=== PATIENT | female | born 1950 | race Caucasian/White ===

== ENCOUNTER → 2017-08-18 | Outpatient (CLI) | payer OTHER ==
[~2017-08-18] MED LIST: ADVIN25050 INH; ALPR1TAB3 PO; AMIT50TA3 PO; FLUO20CA35 PO; HYDR-4079 PO; MELO15TA10 PO; METO5TAB2 PO; OXGN; PRLSR20 PO
[2017-08-18 12:06] LABS: HEMATOCRIT 45.8 % (37-47); MEAN CORPUSCULAR HEMOGLOBIN 29.9 pg (25-34); MEAN CORPUSCULAR HGB CONC 32.5 g/dl (32-36); MEAN PLATELET VOLUME 10.4 fL (7.4-10.4); PLATELET COUNT 274 K/uL (130-400); RED BLOOD COUNT 4.98 M/uL (4.2-5.4); WHITE BLOOD COUNT 8.88 K/uL (4.8-10.8)
[2017-08-18 12:18] LABS: BLOOD UREA NITROGEN 8 mg/dl (7-18); BUN/CREATININE RATIO 9.5 (10-20); CALCIUM 8.8 mg/dl (8.5-10.1); CARBON DIOXIDE 32 mmol/L (21-32); CHLORIDE 103 mmol/L (98-107); GLUCOSE 91 mg/dl (70-99); POTASSIUM 3.9 mmol/L (3.5-5.1); SODIUM 140 mmol/L (136-145)
[2017-08-18 12:29] LABS: CHOLESTEROL 192 mg/dl (0-200); CHOLESTEROL/HDL RATIO 5.5; HDL CHOLESTEROL 35 mg/dl; THYROID STIMULATING HORMONE 0.948 uIu/ml (0.300-4.500); TRIGLYCERIDES 542 mg/dl (0-150)
== END | disposition home or self-care (01) ==
LOC: C.LAB 10:08
PROVIDERS: ATTEND Family Medicine
DX: Z13.220 Encounter for screening for lipoid disorders (principal); R53.83 Other fatigue

== ENCOUNTER 2023-01-22 14:34 | Inpatient (IN) ==
--- NOTE | 2023-01-22 14:54 | Emergency Department Note ---
Impression & Plan Multifocal pneumonia, Fall, Confusion, Elevated troponin ED Provider Note Provider: Idris Hitchcock MD DATE OF SERVICE: 01/22/2023 CHIEF COMPLAINT: Confusion, falls HISTORY OF PRESENT ILLNESS: Patient is a 72-year-old female history of COPD and chronic opioid use presenting today via ambulance from her home. Evidently was found in her house after having multiple falls over the last day or 2 and not acting herself. Patient herself states she is unsure what exactly happened. States she was in her bed when caregiver came and found her. States she lives alone. Denies using alcohol or other drugs. Denies falls to me. Denies pain. Denies nausea or vomiting. Denies shortness of breath. Denies chest pain or abdominal pain specifically or headache. Patient states she thinks her doctor is with [facility]. EMS reports they gave a dose of Narcan in route without change of her mentation. Not normally on oxygen by report. PAST MEDICAL HISTORY: As noted above MEDICATIONS: Reviewed home medication list SOCIAL HISTORY: Patient states he lives by herself PHYSICAL EXAM: GENERAL: alert and oriented to person, year, and month in no acute distress on stretcher but not the best historian to recent events Head: normocephalic and atraumatic EYES: No injection, discharge or icterus. PERRL NECK: Trachea midline. Supple. ENT: Mucous membranes pink and moist. Pharynx without erythema or exudate. LUNGS: Airway patent. No retractions. Breath sounds clear with good air entry bilaterally. HEART: Regular rate and rhythm. No chest wall tenderness ABDOMEN: Soft and non-tender, without guarding or rebound. SKIN: Acyanotic, warm, dry, without rashes EXTREMITIES: Without 1+ lower extremity edema without significant tenderness or deformity. NEUROLOGICAL: No focal deficits. No aphasia although little slow to answer questions at times. No facial droop or slurred speech. Normal strength and tone in the extremities. Sensation to gross touch normal. Ambulatory. EK bpm normal sinus rhythm without PVC or PAC. No acute ST segment elevation with some lead III T wave inversion. QTc 437. CONTINUOUS CARDIAC MONITORING: was ordered and showed a heart rate of 80s-90s bpm in normal sinus rhythm GCS 15. PDMP was reviewed. Patient's laboratory studies and imaging reviewed. Differential includes Infection, dehydration, metabolic abnormality, hypo/hyperglycemia, electrolyte disturbance, anemia, hypoxia, cardiac sources, intracerebral event, toxicologic, neurologic, as well as other pathologies. IMPRESSION/MEDICAL DECISION MAKING: Patient answering question moving all extremities command seems slightly groggy. Pupils not pinpoint. Narcan given prior to arrival without improvement of symptoms. Slightly hypoxic here. Does have prescribed opioids on her medication list. Reports some falls and increased confusion. Basic labs and VBG sent. CT of the head as well as cervical spine given the possibility of falls was sent. No significant stigmata of trauma on physical exam however. Later weaned from oxygen but has a leukocytosis. X-ray concerning for possible right lower lung opacity/pneumonia. Will cover with antibiotics at this time. VBG without significant acidosis or hypercarbia. Not hypoglycemic. Troponin is elevated 156. Unsure if chronic or new. Again mildly hypoxic. Still smoking. Family later arrives and corroborates much of the history but was found on the floor in her bedroom. Family state that she was facedown. They did give Narcan there with maybe slight improvement. She was slurring her speech initially. Question if she was hypoxic. Family question she may have taken extra dose of her medication as well. Alcohol undetectable. Family states she has seemed to may be a bit sick the last day or 2. Family questions you may have a bit of dementia developing but she is acutely worse today. Slightly more alert than when they initially found her according to family. We will expand complete CT of the chest abdomen pelvis given the fact that she was found down and did note later flank contusion. CT of the head and cervical spine without acute traumatic injury. CT of the chest abdomen pelvis shows evidence of a right middle and lower lobe pneumonia/aspiration with some bladder distention and constipation. Possible stercoral proctitis noted with subacute and healing right anterior rib fractures. Patient again borderline with oxygen requirement. Given aspirin with a slight troponin elevation. Discussed with patient and family, given the multiple lobes involved and that fact she is borderline hypoxia and lives alone, discussed with her staying here for further evaluation. Patient and family are in agreement. Discussed with hospitalist for further care here. DIAGNOSIS: Multifocal pneumonia, fall, confusion, elevated troponin DISPOSITION: Hospitalist will evaluate Patient was agreeable with this plan. Past Med/Surg History Medical History Anxiety Chronic obstructive pulmonary disease Depression Osteoarthritis Pseudoangiomatous stromal hyperplasia of breast Restless leg syndrome Sleep apnea CPAP + OXYGEN (REPORTS NO LONGER USING CPAP OR OXYGEN BC UNABLE TO TOLERATE) Smoker unmotivated to quit Spinal stenosis Tachycardia Chronic. Managed with Metoprolol. Was 106bpm at PCP clearance visit. Surgical History History of bowel resection benign tumor History of colonoscopy History of esophagogastroduodenoscopy (EGD) History of left knee replacement History of right knee joint replacement History of rotator cuff surgery Rt History of surgery on upper extremity RUE; hardware present History of tonsillectomy History of total abdominal hysterectomy and bilateral salpingo-oophorectomy Nausea and vomiting after administration of anesthetic agent Family History Other No family history of adverse response to anesthesia Social History Smoking Status: Current every day smoker Tobacco Type: Cigarettes Cigarettes Per Day: 40; Second Hand Exposure: Yes (kids smoke, parents smoked); Hx Alcohol Use: No Hx Substance Use: No Preferred Language: Wolof Communication Ability: Effective Dental Director Required: No Beliefs That Will Affect Care: None marital status: Single Current Living Situation: Alone current occupational status: retired Feels Safe at Home: Yes Assistive Devices: Denture - Upper, Denture - Lower and Glasses Allergies Allergies Allergy/AdvReac Type Severity Reaction Status Date / Time No Known Allergies Allergy Verified 04/15/22 14:23 Home Meds Home Medications Medication Instructions Recorded Confirmed alprazolam 1 mg tablet 1 mg PO TID 12/21/19 01/22/23 budesonide-formoterol HFA 80 2 puff inhalation BID 12/21/19 01/22/23 mcg-4.5 mcg/actuation aerosol inhaler (Symbicort) ezetimibe 10 mg tablet 10 mg PO HS 12/21/19 01/22/23 hydrocodone 5 mg-acetaminophen 325 1 tab PO Q6H PRN Pain 12/21/19 01/22/23 mg tablet oxycodone 5 mg tablet 5 mg PO QID PRN Pain 12/21/19 01/22/23 pramipexole 0.125 mg tablet 0.125 mg PO HS 12/21/19 01/22/23 metoprolol succinate 50 mg 50 mg PO DAILY 05/10/20 01/22/23 tablet,extended release 24 hr albuterol sulfate 2.5 mg/3 mL 2.5 mg continuous nebulization UD 01/22/23 01/22/23 (0.083 %) solution for nebulization amitriptyline 75 mg tablet 75 mg PO HS 01/22/23 01/22/23 buspirone 7.5 mg tablet 7.5 mg PO UD 01/22/23 01/22/23 cholecalciferol (vitamin D3) 50 50 mcg PO DAILY 01/22/23 01/22/23 mcg (2,000 unit) capsule (Vitamin D3) omeprazole 20 mg capsule,delayed 20 mg PO DAILY 01/22/23 01/22/23 release sertraline 50 mg tablet 50 mg PO UD 01/22/23 01/22/23 Results & Data (ED) Vital Signs Vital Signs - 24 hr 01/22/23 14:56 01/22/23 14:56 01/22/23 14:56 Temperature 36.8 C Temperature Source Oral Pulse Rate 98 H Pulse Rhythm Regular Pulse Strength Normal Respiratory Rate 18 Respiratory Effort / Characteristics Non-Labored Respiratory Depth Normal Respiratory Pattern Regular Blood Pressure 157/87 H Blood Pressure Mean 110 Pulse Oximetry 88 L 88 L 94 Oxygen Delivery Method Room Air Room Air Nasal Cannula Nasal Cannula Oxygen Flow Rate 0 Sepsis New/Unexplained Change in Mental Status Yes Sepsis Action Taken by Nursing No Action Required Oxygen Flow Rate - Titration 3 Pulse Oximetry Post Tiitration 94 Laboratory Data 01/22/23 14:44 01/22/23 14:44 Lab Results 01/22/23 01/22/23 01/22/23 Range/Units 14:44 14:44 14:44 WBC 16.82 H (4.8-10.8) K/ul RBC 4.37 (4.20-5.40) M/uL Hgb 13.5 (12.0-16.0) g/dl Hct 39.4 (37.0-47.0) % MCV 90.2 (80.0-100.0) fL MCH 30.9 (25.0-34.0) pg MCHC 34.3 (32.0-36.0) g/dL RDW Std Deviation 42.7 (36.4-46.3) fL RDW Coeff of Benny 12.9 (11.5-14.5) % Plt Count 220 (130-400) K/uL MPV 10.6 (9.4-12.4) fL Immature Gran % (Auto) 0.4 % Neut % (Auto) 84.4 % Lymph % (Auto) 10.0 % [place] % (Auto) 4.9 % Eos % (Auto) 0.1 % Baso % (Auto) 0.2 % Neut # (Auto) 14.21 H (1.40-6.50) K/uL Lymph # (Auto) 1.68 (1.2-3.4) K/uL [place] # (Auto) 0.82 H (0.11-0.59) K/uL Eos # (Auto) 0.02 (0-0.50) K/uL Baso # (Auto) 0.03 (0-0.2) K/uL Immature Gran # (Auto) 0.06 (0.01-0.20) K/uL PT Cancelled INR Cancelled APTT (21.0-31.0) Seconds PTT Ratio VBG pH (7.36-7.41) VBG pCO2 (38-50) mmHg VBG pO2 mmHg VBG HCO3 mmol/L VBG O2 Saturation % VBG Base Excess mEq/L Sodium 134 L (136-145) mmol/L Potassium 4.3 (3.5-5.1) mmol/L Chloride 97 L (98-107) mmol/L Carbon Dioxide 33 H (21-32) mmol/L Anion Gap 4 (3-11) BUN 8 (6-23) mg/dl Creatinine 0.55 L (0.6-1.2) mg/dl Est Cr Clr Drug Dosing 94.8 ml/min Est GFR ( Amer) 109.4 ml/min Est GFR (Non-Af Amer) 94.4 ml/min BUN/Creatinine Ratio 14.5 (10-20) Glucose 106 H (70-99(Fasting)) mg/dl POC Glucose (70-99) mg/dl Calcium 8.7 (8.5-10.1) mg/dl Magnesium 1.8 (1.7-2.4) mg/dl Total Bilirubin 0.6 (0.2-1.0) mg/dl AST 16 (13-39) U/L ALT 10 (7-52) U/L Alkaline Phosphatase 121 H (34-104) U/L Total Creatine Kinase 245 H (26-192) U/L Troponin I High Sens 156.3 H* (0-14) pg/ml Total Protein 6.8 (6.0-8.3) gm/dl Albumin 4.0 (3.4-5.0) gm/dl Globulin 2.8 (2.5-4.0) gm/dl Albumin/Globulin Ratio 1.4 (0.9-2) Procalcitonin TSH (0.300-4.500) uIu/ml Urine Color Urine Appearance (Clear) Urine pH (4.5-7.5) Ur Specific [place] (1.000-1.030) Urine Protein (Negative) Urine Glucose (UA) (Negative) Urine Ketones (Negative) Urine Blood (Negative) Urine Nitrite (Negative) Urine Bilirubin (Negative) Urine Urobilinogen (Negative) Ur Leukocyte Esterase (Negative) Urine Opiates Screen (Neg) Ur Methadone, Qual (Neg) Urine Barbiturates (Neg) Ur Phencyclidine (PCP) (Neg) U Amphetamin/Meth Scrn (Neg) MDMA (Ecstasy) Screen (Neg) U Benzodiazepines Scrn (Neg) Ur Cocaine Metabolite (Neg) U Marijuana (THC) Screen (Neg) Ethyl Alcohol mg/dL (<10.0) mg/dl SARS-CoV-2, RNA, NAAT (NEGATIVE) 01/22/23 01/22/23 01/22/23 Range/Units 14:44 14:44 15:10 WBC (4.8-10.8) K/ul RBC (4.20-5.40) M/uL Hgb (12.0-16.0) g/dl Hct (37.0-47.0) % MCV (80.0-100.0) fL MCH (25.0-34.0) pg MCHC (32.0-36.0) g/dL RDW Std Deviation (36.4-46.3) fL RDW Coeff of Benny (11.5-14.5) % Plt Count (130-400) K/uL MPV (9.4-12.4) fL Immature Gran % (Auto) % Neut % (Auto) % Lymph % (Auto) % [place] % (Auto) % Eos % (Auto) % Baso % (Auto) % Neut # (Auto) (1.40-6.50) K/uL Lymph # (Auto) (1.2-3.4) K/uL [place] # (Auto) (0.11-0.59) K/uL Eos # (Auto) (0-0.50) K/uL Baso # (Auto) (0-0.2) K/uL Immature Gran # (Auto) (0.01-0.20) K/uL PT INR APTT (21.0-31.0) Seconds PTT Ratio VBG pH (7.36-7.41) VBG pCO2 (38-50) mmHg VBG pO2 mmHg VBG HCO3 mmol/L VBG O2 Saturation % VBG Base Excess mEq/L Sodium (136-145) mmol/L Potassium (3.5-5.1) mmol/L Chloride (98-107) mmol/L Carbon Dioxide (21-32) mmol/L Anion Gap (3-11) BUN (6-23) mg/dl Creatinine (0.6-1.2) mg/dl Est Cr Clr Drug Dosing ml/min Est GFR ( Amer) ml/min Est GFR (Non-Af Amer) ml/min BUN/Creatinine Ratio (10-20) Glucose (70-99(Fasting)) mg/dl POC Glucose (70-99) mg/dl Calcium (8.5-10.1) mg/dl Magnesium (1.7-2.4) mg/dl Total Bilirubin (0.2-1.0) mg/dl AST (13-39) U/L ALT (7-52) U/L Alkaline Phosphatase (34-104) U/L Total Creatine Kinase (26-192) U/L Troponin I High Sens (0-14) pg/ml Total Protein (6.0-8.3) gm/dl Albumin (3.4-5.0) gm/dl Globulin (2.5-4.0) gm/dl Albumin/Globulin Ratio (0.9-2) Procalcitonin Cancelled TSH 0.940 (0.300-4.500) uIu/ml Urine Color Urine Appearance (Clear) Urine pH (4.5-7.5) Ur Specific [place] (1.000-1.030) Urine Protein (Negative) Urine Glucose (UA) (Negative) Urine Ketones (Negative) Urine Blood (Negative) Urine Nitrite (Negative) Urine Bilirubin (Negative) Urine Urobilinogen (Negative) Ur Leukocyte Esterase (Negative) Urine Opiates Screen (Neg) Ur Methadone, Qual (Neg) Urine Barbiturates (Neg) Ur Phencyclidine (PCP) (Neg) U Amphetamin/Meth Scrn (Neg) MDMA (Ecstasy) Screen (Neg) U Benzodiazepines Scrn (Neg) Ur Cocaine Metabolite (Neg) U Marijuana (THC) Screen (Neg) Ethyl Alcohol mg/dL (<10.0) mg/dl SARS-CoV-2, RNA, NAAT NEGATIVE (NEGATIVE) 01/22/23 01/22/23 01/22/23 Range/Units 15:16 15:33 15:33 WBC (4.8-10.8) K/ul RBC (4.20-5.40) M/uL Hgb (12.0-16.0) g/dl Hct (37.0-47.0) % MCV (80.0-100.0) fL MCH (25.0-34.0) pg MCHC (32.0-36.0) g/dL RDW Std Deviation (36.4-46.3) fL RDW Coeff of Benny (11.5-14.5) % Plt Count (130-400) K/uL MPV (9.4-12.4) fL Immature Gran % (Auto) % Neut % (Auto) % Lymph % (Auto) % [place] % (Auto) % Eos % (Auto) % Baso % (Auto) % Neut # (Auto) (1.40-6.50) K/uL Lymph # (Auto) (1.2-3.4) K/uL [place] # (Auto) (0.11-0.59) K/uL Eos # (Auto) (0-0.50) K/uL Baso # (Auto) (0-0.2) K/uL Immature Gran # (Auto) (0.01-0.20) K/uL PT INR APTT (21.0-31.0) Seconds PTT Ratio VBG pH 7.36 (7.36-7.41) VBG pCO2 63 H (38-50) mmHg VBG pO2 25 mmHg VBG HCO3 36 mmol/L VBG O2 Saturation < 60.0 % VBG Base Excess 7.9 mEq/L Sodium (136-145) mmol/L Potassium (3.5-5.1) mmol/L Chloride (98-107) mmol/L Carbon Dioxide (21-32) mmol/L Anion Gap (3-11) BUN (6-23) mg/dl Creatinine (0.6-1.2) mg/dl Est Cr Clr Drug Dosing ml/min Est GFR ( Amer) ml/min Est GFR (Non-Af Amer) ml/min BUN/Creatinine Ratio (10-20) Glucose (70-99(Fasting)) mg/dl POC Glucose 122 H (70-99) mg/dl Calcium (8.5-10.1) mg/dl Magnesium (1.7-2.4) mg/dl Total Bilirubin (0.2-1.0) mg/dl AST (13-39) U/L ALT (7-52) U/L Alkaline Phosphatase (34-104) U/L Total Creatine Kinase (26-192) U/L Troponin I High Sens (0-14) pg/ml Total Protein (6.0-8.3) gm/dl Albumin (3.4-5.0) gm/dl Globulin (2.5-4.0) gm/dl Albumin/Globulin Ratio (0.9-2) Procalcitonin TSH (0.300-4.500) uIu/ml Urine Color Urine Appearance (Clear) Urine pH (4.5-7.5) Ur Specific [place] (1.000-1.030) Urine Protein (Negative) Urine Glucose (UA) (Negative) Urine Ketones (Negative) Urine Blood (Negative) Urine Nitrite (Negative) Urine Bilirubin (Negative) Urine Urobilinogen (Negative) Ur Leukocyte Esterase (Negative) Urine Opiates Screen (Neg) Ur Methadone, Qual (Neg) Urine Barbiturates (Neg) Ur Phencyclidine (PCP) (Neg) U Amphetamin/Meth Scrn (Neg) MDMA (Ecstasy) Screen (Neg) U Benzodiazepines Scrn (Neg) Ur Cocaine Metabolite (Neg) U Marijuana (THC) Screen (Neg) Ethyl Alcohol mg/dL < 10.0 (<10.0) mg/dl SARS-CoV-2, RNA, NAAT (NEGATIVE) 0201/22/23 01/22/23 Range/Units 15:33 15:33 17:05 WBC (4.8-10.8) K/ul RBC (4.20-5.40) M/uL Hgb (12.0-16.0) g/dl Hct (37.0-47.0) % MCV (80.0-100.0) fL MCH (25.0-34.0) pg MCHC (32.0-36.0) g/dL RDW Std Deviation (36.4-46.3) fL RDW Coeff of Benny (11.5-14.5) % Plt Count (130-400) K/uL MPV (9.4-12.4) fL Immature Gran % (Auto) % Neut % (Auto) % Lymph % (Auto) % [place] % (Auto) % Eos % (Auto) % Baso % (Auto) % Neut # (Auto) (1.40-6.50) K/uL Lymph # (Auto) (1.2-3.4) K/uL [place] # (Auto) (0.11-0.59) K/uL Eos # (Auto) (0-0.50) K/uL Baso # (Auto) (0-0.2) K/uL Immature Gran # (Auto) (0.01-0.20) K/uL PT 10.4 INR 1.0 APTT 27.7 (21.0-31.0) Seconds PTT Ratio 1.0 VBG pH (7.36-7.41) VBG pCO2 (38-50) mmHg VBG pO2 mmHg VBG HCO3 mmol/L VBG O2 Saturation % VBG Base Excess mEq/L Sodium (136-145) mmol/L Potassium (3.5-5.1) mmol/L Chloride (98-107) mmol/L Carbon Dioxide (21-32) mmol/L Anion Gap (3-11) BUN (6-23) mg/dl Creatinine (0.6-1.2) mg/dl Est Cr Clr Drug Dosing ml/min Est GFR ( Amer) ml/min Est GFR (Non-Af Amer) ml/min BUN/Creatinine Ratio (10-20) Glucose (70-99(Fasting)) mg/dl POC Glucose (70-99) mg/dl Calcium (8.5-10.1) mg/dl Magnesium (1.7-2.4) mg/dl Total Bilirubin (0.2-1.0) mg/dl AST (13-39) U/L ALT (7-52) U/L Alkaline Phosphatase (34-104) U/L Total Creatine Kinase (26-192) U/L Troponin I High Sens (0-14) pg/ml Total Protein (6.0-8.3) gm/dl Albumin (3.4-5.0) gm/dl Globulin (2.5-4.0) gm/dl Albumin/Globulin Ratio (0.9-2) Procalcitonin 0.10 TSH (0.300-4.500) uIu/ml Urine Color Yellow Urine Appearance Clear (Clear) Urine pH 7.0 (4.5-7.5) Ur Specific [place] 1.010 (1.000-1.030) Urine Protein Negative (Negative) Urine Glucose (UA) Negative (Negative) Urine Ketones Negative (Negative) Urine Blood Negative (Negative) Urine Nitrite Negative (Negative) Urine Bilirubin Negative (Negative) Urine Urobilinogen Negative (Negative) Ur Leukocyte Esterase Negative (Negative) Urine Opiates Screen (Neg) Ur Methadone, Qual (Neg) Urine Barbiturates (Neg) Ur Phencyclidine (PCP) (Neg) U Amphetamin/Meth Scrn (Neg) MDMA (Ecstasy) Screen (Neg) U Benzodiazepines Scrn (Neg) Ur Cocaine Metabolite (Neg) U Marijuana (THC) Screen (Neg) Ethyl Alcohol mg/dL (<10.0) mg/dl SARS-CoV-2, RNA, NAAT (NEGATIVE) 01/22/23 Range/Units 17:05 WBC (4.8-10.8) K/ul RBC (4.20-5.40) M/uL Hgb (12.0-16.0) g/dl Hct (37.0-47.0) % MCV (80.0-100.0) fL MCH (25.0-34.0) pg MCHC (32.0-36.0) g/dL RDW Std Deviation (36.4-46.3) fL RDW Coeff of Benny (11.5-14.5) % Plt Count (130-400) K/uL MPV (9.4-12.4) fL Immature Gran % (Auto) % Neut % (Auto) % Lymph % (Auto) % [place] % (Auto) % Eos % (Auto) % Baso % (Auto) % Neut # (Auto) (1.40-6.50) K/uL Lymph # (Auto) (1.2-3.4) K/uL [place] # (Auto) (0.11-0.59) K/uL Eos # (Auto) (0-0.50) K/uL Baso # (Auto) (0-0.2) K/uL Immature Gran # (Auto) (0.01-0.20) K/uL PT INR APTT (21.0-31.0) Seconds PTT Ratio VBG pH (7.36-7.41) VBG pCO2 (38-50) mmHg VBG pO2 mmHg VBG HCO3 mmol/L VBG O2 Saturation % VBG Base Excess mEq/L Sodium (136-145) mmol/L Potassium (3.5-5.1) mmol/L Chloride (98-107) mmol/L Carbon Dioxide (21-32) mmol/L Anion Gap (3-11) BUN (6-23) mg/dl Creatinine (0.6-1.2) mg/dl Est Cr Clr Drug Dosing ml/min Est GFR ( Amer) ml/min Est GFR (Non-Af Amer) ml/min BUN/Creatinine Ratio (10-20) Glucose (70-99(Fasting)) mg/dl POC Glucose (70-99) mg/dl Calcium (8.5-10.1) mg/dl Magnesium (1.7-2.4) mg/dl Total Bilirubin (0.2-1.0) mg/dl AST (13-39) U/L ALT (7-52) U/L Alkaline Phosphatase (34-104) U/L Total Creatine Kinase (26-192) U/L Troponin I High Sens (0-14) pg/ml Total Protein (6.0-8.3) gm/dl Albumin (3.4-5.0) gm/dl Globulin (2.5-4.0) gm/dl Albumin/Globulin Ratio (0.9-2) Procalcitonin TSH (0.300-4.500) uIu/ml Urine Color Urine Appearance (Clear) Urine pH (4.5-7.5) Ur Specific [place] (1.000-1.030) Urine Protein (Negative) Urine Glucose (UA) (Negative) Urine Ketones (Negative) Urine Blood (Negative) Urine Nitrite (Negative) Urine Bilirubin (Negative) Urine Urobilinogen (Negative) Ur Leukocyte Esterase (Negative) Urine Opiates Screen Pos H (Neg) Ur Methadone, Qual Neg (Neg) Urine Barbiturates Neg (Neg) Ur Phencyclidine (PCP) Neg (Neg) U Amphetamin/Meth Scrn Neg (Neg) MDMA (Ecstasy) Screen Neg (Neg) U Benzodiazepines Scrn Pos H (Neg) Ur Cocaine Metabolite Neg (Neg) U Marijuana (THC) Screen Neg (Neg) Ethyl Alcohol mg/dL (<10.0) mg/dl SARS-CoV-2, RNA, NAAT (NEGATIVE) Administered Medications Discontinued Medications Aspirin (Aspirin 81 Mg Chew) 324 mg PO NOW STA Stop: 01/22/23 17:15 Last Admin: 01/22/23 17:30 Dose: 324 mg Documented By: KAMAR Azithromycin (Azithromycin 250 Mg Tab) 500 mg PO NOW ONE Stop: 01/22/23 17:15 Last Admin: 01/22/23 17:30 Dose: 500 mg Documented By: KAMAR Ceftriaxone Sodium (Rocephin) 2,000 mg in 70 mls @ 140 mls/hr IV NOW STA Stop: 01/22/23 16:30 Last Infusion: 01/22/23 16:50 Dose: 0 mls/hr Documented By: Admin: 01/22/23 16:19 Dose: 140 mls/hr Documented By: KAMAR Imaging Data Radiologist's Impression: Chest X-Ray 01/22/23 14:52 XR chest 1V portable CLINICAL HISTORY: weakness COMPARISON STUDY: Chest CT December 05, 2020. Chest radiograph September 13, 2015. FINDINGS: Old right clavicular and old right-sided rib fractures are present. There are postoperative findings within the right shoulder. No pneumothorax or pleural effusion is present. Mild cardiomegaly is noted with pulmonary vascular congestion. There is possible right basilar opacity. There is no pneumothorax or pleural effusion. IMPRESSION: 1. Possible right lower lung airspace opacity. Radiographic follow-up to ensure resolution is recommended. 2. No pneumothorax. 3. Mild cardiomegaly with pulmonary vascular congestion. ACT 112: Negative or not required by law. Electronically signed by: Cleve Cook M.D. 01/22/2023 3:[address] 01/22/23 14:52 CT SCAN OF THE BRAIN WITHOUT IV CONTRAST CLINICAL HISTORY: Fall. Change in mental status. COMPARISON STUDY: No priors. TECHNIQUE: Unenhanced axial CT scan of the brain is performed from the vertex to the skull base. A dose lowering technique was utilized adhering to the principles of ALARA. FINDINGS: Brain parenchyma: There is age-related involutional change noting mild subcortical and periventricular microangiopathic disease. There is no hemorrhage, mass effect, or evidence of acute territorial ischemia by CT criteria. Gruber-white matter differentiation is preserved. No extra-axial fluid collection is seen. Ventricles, sulci, cisterns: Prominent secondary to involutional change. Intracranial vasculature: There is atherosclerotic calcification of the cavernous carotid and vertebral arteries. Calvarium: The skeletal structures are osteopenic. No depressed calvarial fracture is seen. Sinuses and mastoids: The visualized paranasal sinuses are clear. The mastoid air cells are well pneumatized. Orbits: The bony orbits are grossly intact. IMPRESSION: There is no hemorrhage, mass effect, or evidence of acute territorial ischemia by CT criteria. ACT 112: Negative or not required by law. Electronically signed by: Calvin Bennett M.D. 01/22/2023 4:53 PM Pelvis X-Ray 01/22/23 14:52 XR pelvis 1-2V routine CLINICAL HISTORY: falls TECHNIQUE: A single frontal view of the pelvis was obtained. Comparison: None available at the time of this dictation. FINDINGS: There is no evidence of an acute fracture. Joint spaces are well-preserved. No soft tissue abnormality is seen. IMPRESSION: No evidence of acute osseous injury. ACT 112: Negative or not required by law. Electronically signed by: Stepan Brandt M.D. 01/22/2023 3:[address] 01/22/23 15:00 CT cervical spine wo con CLINICAL HISTORY: falls TECHNIQUE: Multidetector row helical CT of the cervical spine was performed without administration of intravenous contrast. Coronal and sagittal reformations were obtained. Automated dose lowering techniques and/or adjustment according to patient size were utilized for this exam. Comparison: None available at the time of this dictation. FINDINGS: No acute fractures or subluxations are identified. Degenerative changes are seen in the visualized spine. The alignment is normal. Carotid artery calcifications are incidentally noted bilaterally. IMPRESSION: Degenerative changes without evidence of acute bony injury. ACT 112: Negative or not required by law. Electronically signed by: Stepan Brandt M.D. 01/22/2023 4:57 PM Abdomen/Pelvis CT 01/22/23 16:13 CT SCAN OF THE CHEST, ABDOMEN, AND PELVIS WITHOUT IV CONTRAST CLINICAL HISTORY: Fall. COMPARISON STUDY: Chest CT dated 12/05/2020. TECHNIQUE: Unenhanced CT scan of the chest, abdomen, and pelvis was performed from the thoracic inlet to the proximal femora. Images are reviewed in the axial, sagittal, and coronal planes. IV contrast was not administered as per the referring clinician. Note that the examination was performed in significantly suboptimal fashion without IV contrast. A dose lowering technique was utilized adhering to the principles of ALARA. There is streak artifact from the arms which could not be elevated above the chest or abdomen. CT DOSE: 2442.35 mGy.cm FINDINGS: CHEST: Thyroid: Normal in size and heterogeneous in attenuation. Thoracic aorta: There is atherosclerotic calcification of the thoracic aorta, which is normal in caliber and demonstrates standard 3-vessel arch anatomy. Heart: The heart is normal in size and without pericardial effusion. The coronary arteries are densely calcified. Lungs and pleural spaces: There is moderate emphysema. No pleural effusion or pneumothorax is seen. Foci of parenchymal scarring are noted throughout both lungs. Patchy airspace consolidation is seen throughout the right middle and lower lobes. The trachea is clear. Secretions are noted in the right mainstem bronchus. Mediastinum: There is no mediastinal hematoma or lymphadenopathy. Luiza: Not well assessed without IV contrast. Axillae: There is no axillary lymphadenopathy. Bony thorax: The skeletal structures are osteopenic. There are mild chronic compression deformities at T2, T3, T4, T6, T7, and T8. No lytic or blastic lesions are identified. No acute fracture is identified involving the bony thorax. There are subacute/healing right anterior 5th through 7th rib fractures. Additional bilateral rib fractures are chronic/healed. There is chronic posttraumatic deformity of the right clavicle. Arthritic change is noted in the shoulders, with postsurgical change on the right. ABDOMEN AND PELVIS: Liver: The unenhanced liver is normal in size, contour, and attenuation. There is mild intrahepatic biliary ductal dilatation. Gallbladder: Surgically absent noting clips in the gallbladder fossa. Spleen: Normal in size and attenuation. Pancreas: The unenhanced pancreas is mildly atrophic and grossly unremarkable. Adrenal glands: Unremarkable. Kidneys: The unenhanced kidneys demonstrate mild cortical atrophy. There is mild bilateral hydroureteronephrosis, right greater than left. This is likely related to the degree of bladder distention.. No renal calculi are identified. There is no evidence of contour deforming mass lesion. Abdominal vasculature: The abdominal aorta is normal in course and caliber noting advanced atherosclerotic calcification. Stomach and bowel: There is a small hiatal hernia. There is rectosigmoid fecal impaction and moderate constipation. No bowel obstruction is seen. There is mild rectal wall thickening and perirectal inflammation. Postsurgical change is noted involving the right colon. The appendix is surgically absent. Peritoneum: There is no intraperitoneal free air or abdominal ascites. Lymphadenopathy: None. Pelvic viscera: The bladder is markedly distended but otherwise normal in appearance. The uterus is surgically absent. No adnexal lesion is seen. Skeletal structures: The skeletal structures are osteopenic. The lumbosacral spine, bony pelvis, and proximal femora appear intact. There is mild lumbosacral spondylosis. No lytic or blastic lesions are seen. IMPRESSION: 1. There is no acute posttraumatic intrathoracic abnormality. 2. Patchy airspace consolidation throughout the right middle and lower lobes is typical for pneumonia/aspiration pneumonitis. Clinical correlation will be required and radiographic follow-up to resolution is recommended. 3. There is no pneumothorax or pleural effusion. 4. There is no evidence of solid organ injury in the abdomen or pelvis on this unenhanced examination. 5. Marked bladder distention. 6. There is mild bilateral hydroureteronephrosis, likely related to the degree of bladder distention. 7. There is rectosigmoid fecal impaction and moderate constipation. 8. There is mild rectal wall thickening and perirectal infiltration. The appearance suggests stercoral proctitis and clinical correlation will be required. 9. There are subacute/healing right anterior rib fractures. 10. No acute fracture is seen. 11. Emphysema. 12. Additional findings as above. ACT 112: Negative or not required by law. Electronically signed by: Calvin Bennett M.D. 01/22/2023 5:[address] 01/22/23 16:13 CT SCAN OF THE CHEST, ABDOMEN, AND PELVIS WITHOUT IV CONTRAST CLINICAL HISTORY: Fall. COMPARISON STUDY: Chest CT dated 12/05/2020. TECHNIQUE: Unenhanced CT scan of the chest, abdomen, and pelvis was performed from the thoracic inlet to the proximal femora. Images are reviewed in the axial, sagittal, and coronal planes. IV contrast was not administered as per the referring clinician. Note that the examination was performed in significantly suboptimal fashion without IV contrast. A dose lowering technique was utilized adhering to the principles of ALARA. There is streak artifact from the arms which could not be elevated above the chest or abdomen. CT DOSE: 2442.35 mGy.cm FINDINGS: CHEST: Thyroid: Normal in size and heterogeneous in attenuation. Thoracic aorta: There is atherosclerotic calcification of the thoracic aorta, which is normal in caliber and demonstrates standard 3-vessel arch anatomy. Heart: The heart is normal in size and without pericardial effusion. The coronary arteries are densely calcified. Lungs and pleural spaces: There is moderate emphysema. No pleural effusion or pneumothorax is seen. Foci of parenchymal scarring are noted throughout both lungs. Patchy airspace consolidation is seen throughout the right middle and lower lobes. The trachea is clear. Secretions are noted in the right mainstem bronchus. Mediastinum: There is no mediastinal hematoma or lymphadenopathy. Luiza: Not well assessed without IV contrast. Axillae: There is no axillary lymphadenopathy. Bony thorax: The skeletal structures are osteopenic. There are mild chronic compression deformities at T2, T3, T4, T6, T7, and T8. No lytic or blastic lesions are identified. No acute fracture is identified involving the bony thorax. There are subacute/healing right anterior 5th through 7th rib fractures. Additional bilateral rib fractures are chronic/healed. There is chronic posttraumatic deformity of the right clavicle. Arthritic change is noted in the shoulders, with postsurgical change on the right. ABDOMEN AND PELVIS: Liver: The unenhanced liver is normal in size, contour, and attenuation. There is mild intrahepatic biliary ductal dilatation. Gallbladder: Surgically absent noting clips in the gallbladder fossa. Spleen: Normal in size and attenuation. Pancreas: The unenhanced pancreas is mildly atrophic and grossly unremarkable. Adrenal glands: Unremarkable. Kidneys: The unenhanced kidneys demonstrate mild cortical atrophy. There is mild bilateral hydroureteronephrosis, right greater than left. This is likely related to the degree of bladder distention.. No renal calculi are identified. There is no evidence of contour deforming mass lesion. Abdominal vasculature: The abdominal aorta is normal in course and caliber noting advanced atherosclerotic calcification. Stomach and bowel: There is a small hiatal hernia. There is rectosigmoid fecal impaction and moderate constipation. No bowel obstruction is seen. There is mild rectal wall thickening and perirectal inflammation. Postsurgical change is noted involving the right colon. The appendix is surgically absent. Peritoneum: There is no intraperitoneal free air or abdominal ascites. Lymphadenopathy: None. Pelvic viscera: The bladder is markedly distended but otherwise normal in appearance. The uterus is surgically absent. No adnexal lesion is seen. Skeletal structures: The skeletal structures are osteopenic. The lumbosacral spine, bony pelvis, and proximal femora appear intact. There is mild lumbosacral spondylosis. No lytic or blastic lesions are seen. IMPRESSION: 1. There is no acute posttraumatic intrathoracic abnormality. 2. Patchy airspace consolidation throughout the right middle and lower lobes is typical for pneumonia/aspiration pneumonitis. Clinical correlation will be required and radiographic follow-up to resolution is recommended. 3. There is no pneumothorax or pleural effusion. 4. There is no evidence of solid organ injury in the abdomen or pelvis on this unenhanced examination. 5. Marked bladder distention. 6. There is mild bilateral hydroureteronephrosis, likely related to the degree of bladder distention. 7. There is rectosigmoid fecal impaction and moderate constipation. 8. There is mild rectal wall thickening and perirectal infiltration. The appearance suggests stercoral proctitis and clinical correlation will be required. 9. There are subacute/healing right anterior rib fractures. 10. No acute fracture is seen. 11. Emphysema. 12. Additional findings as above. ACT 112: Negative or not required by law. Electronically signed by: Calvin Bennett M.D. 01/22/2023 5:06 PM Discharge Plan Visit Data Chief Complaint: Altered Mental Status Stated Complaint: AMS ED Provider: Idris Hitchcock Discharge Problem: Multifocal pneumonia, Fall, Confusion, Elevated troponin Patient Disposition: Being Evaluated by Hospitalist Forms Stand Alone Forms: [employer] Prescriptions Prescriptions: No Action alprazolam 1 mg Tablet 1 mg PO TID hydrocodone-acetaminophen 5-325 mg Tablet 1 tab PO Q6H PRN (Reason: Pain) pramipexole 0.125 mg Tablet 0.125 mg PO HS oxycodone 5 mg Tablet 5 mg PO QID PRN (Reason: Pain) ezetimibe 10 mg Tablet 10 mg PO HS budesonide-formoterol [Symbicort] 80-4.5 mcg/actuation Hfa Aerosol Inhaler 2 puff INHALATION BID metoprolol succinate 50 mg Tablet Extended Release 24 Hr 50 mg PO DAILY albuterol sulfate 2.5 mg /3 mL (0.083 %) solution for nebulization 2.5 mg continuous nebulization UD buspirone 7.5 mg tablet 7.5 mg PO UD omeprazole 20 mg capsule,delayed release(DR/EC) 20 mg PO DAILY cholecalciferol (vitamin D3) [Vitamin D3] 50 mcg (2,000 unit) capsule 50 mcg PO DAILY amitriptyline 75 mg tablet 75 mg PO HS sertraline 50 mg tablet 50 mg PO UD Referrals Referrals: Chloe Díaz PA-C [Primary Care Provider] -
[2023-01-22 15:44] LABS: Basophils # (auto) 0.03 K/uL (0-0.2); Basophils % (auto) 0.2 %; Eosinophils # (auto) 0.02 K/uL (0-0.50); Eosinophils % (auto) 0.1 %; Hematocrit (blood only) 39.4 % (37.0-47.0); Hemoglobin 13.5 g/dl (12.0-16.0); Immature Granulocytes # (auto) 0.06 K/uL (0.01-0.20); Immature Granulocytes % (auto) 0.4 %; Lymphocytes # (auto) 1.68 K/uL (1.2-3.4); Mean Corpuscular Hemoglobin 30.9 pg (25.0-34.0); Mean Corpuscular Hgb Conc 34.3 g/dL (32.0-36.0); Mean Corpuscular Volume 90.2 fL (80.0-100.0); Mean Platelet Volume 10.6 fL (9.4-12.4); Monocytes # (auto) 0.82 K/uL (0.11-0.59); Monocytes % (auto) 4.9 %; Neutrophils # (auto) 14.21 K/uL (1.40-6.50); Neutrophils % (auto) 84.4 %; Platelet Count 220 K/uL (130-400); RDW Coefficient of Variation 12.9 % (11.5-14.5); RDW Standard Deviation 42.7 fL (36.4-46.3); Red Blood Count 4.37 M/uL (4.20-5.40); White Blood Count 16.82 K/ul (4.8-10.8)
[2023-01-22 15:45] LABS: Base Excess VBG 7.9 mEq/L; HCO3 VBG 36 mmol/L; Oxygen Saturation VBG < 60.0 %; PCO2 VBG 63 mmHg (38-50); PO2 VBG 25 mmHg; pH VBG 7.36 (7.36-7.41)
--- NOTE | 2023-01-22 15:51 | XRay Report ---
XR chest 1V portable CLINICAL HISTORY: weakness COMPARISON STUDY: Chest CT December 05, 2020. Chest radiograph September 13, 2015. FINDINGS: Old right clavicular and old right-sided rib fractures are present. There are postoperative findings within the right shoulder. No pneumothorax or pleural effusion is present. Mild cardiomegal y is noted with pulmonary vascular congestion. There is possible right basilar opacity. There is no p neumothorax or pleural effusion. IMPRESSION: 1. Possible right lower lung airspace opacity. Radiographic follow-up to ensure resolution is recomme nded. 2. No pneumothorax. 3. Mild cardiomegaly with pulmonary vascular congestion. ACT 112: Negative or not required by law. Electronically signed by: Cleve Cook M.D. 01/22/2023 3:50 PM
--- NOTE | 2023-01-22 15:59 | XRay Report ---
XR pelvis 1-2V routine CLINICAL HISTORY: falls TECHNIQUE: A single frontal view of the pelvis was obtained. Comparison: None available at the time of this dictation. FINDINGS: There is no evidence of an acute fracture. Joint spaces are well-preserved. No soft tissue abnormali ty is seen. IMPRESSION: No evidence of acute osseous injury. ACT 112: Negative or not required by law. Electronically signed by: Stepan Brandt M.D. 01/22/2023 3:57 PM
[2023-01-22] MEDS ORDERED: cefTRIAXone SODIUM 2,000 MG/70 ML BAG IV STA (16:01)
[2023-01-22 16:13] LABS: Troponin I High Sensitivity 156.3 pg/ml (0-14)
[2023-01-22 16:28] LABS: Albumin Globulin Ratio 1.4 (0.9-2); BUN Creatinine Ratio 14.5 (10-20); Bilirubin,Total 0.6 mg/dl (0.2-1.0); Calcium 8.7 mg/dl (8.5-10.1); Creatinine Clr Calc Pharmacy 94.8 ml/min; Est GFR (African American) 109.4 ml/min; Est GFR (Non-African American) 94.4 ml/min; Globulin 2.8 gm/dl (2.5-4.0); Magnesium 1.8 mg/dl (1.7-2.4); Potassium 4.3 mmol/L (3.5-5.1); Total Protein 6.8 gm/dl (6.0-8.3)
[2023-01-22 16:33] LABS: Partial Thromboplastin Time 27.7 Seconds (21.0-31.0); Prothrombin Time 10.4 Seconds (9.0-12.0)
--- NOTE | 2023-01-22 16:54 | CT Scan Report ---
CT SCAN OF THE BRAIN WITHOUT IV CONTRAST CLINICAL HISTORY: Fall. Change in mental status. COMPARISON STUDY: No priors. TECHNIQUE: Unenhanced axial CT scan of the brain is performed from the vertex to the skull base. A do se lowering technique was utilized adhering to the principles of ALARA. FINDINGS: Brain parenchyma: There is age-related involutional change noting mild subcortical and periventricula r microangiopathic disease. There is no hemorrhage, mass effect, or evidence of acute territorial isc hemia by CT criteria. Gruber-white matter differentiation is preserved. No extra-axial fluid collection is seen. Ventricles, sulci, cisterns: Prominent secondary to involutional change. Intracranial vasculature: There is atherosclerotic calcification of the cavernous carotid and vertebr al arteries. Calvarium: The skeletal structures are osteopenic. No depressed calvarial fracture is seen. Sinuses and mastoids: The visualized paranasal sinuses are clear. The mastoid air cells are well pneu matized. Orbits: The bony orbits are grossly intact. IMPRESSION: There is no hemorrhage, mass effect, or evidence of acute territorial ischemia by CT marcella cordon. ACT 112: Negative or not required by law. Electronically signed by: Calvin Bennett M.D. 01/22/2023 4:53 PM
--- NOTE | 2023-01-22 16:59 | CT Scan Report ---
CT cervical spine wo con CLINICAL HISTORY: falls TECHNIQUE: Multidetector row helical CT of the cervical spine was performed without administration of intravenous contrast. Coronal and sagittal reformations were obtained. Automated dose lowering techn iques and/or adjustment according to patient size were utilized for this exam. Comparison: None available at the time of this dictation. FINDINGS: No acute fractures or subluxations are identified. Degenerative changes are seen in the visualized sp ine. The alignment is normal. Carotid artery calcifications are incidentally noted bilaterally. IMPRESSION: Degenerative changes without evidence of acute bony injury. ACT 112: Negative or not required by law. Electronically signed by: Stepan Brandt M.D. 01/22/2023 4:57 PM
--- NOTE | 2023-01-22 17:08 | CT Scan Report ---
CT SCAN OF THE CHEST, ABDOMEN, AND PELVIS WITHOUT IV CONTRAST CLINICAL HISTORY: Fall. COMPARISON STUDY: Chest CT dated 12/05/2020. TECHNIQUE: Unenhanced CT scan of the chest, abdomen, and pelvis was performed from the thoracic inlet to the proximal femora. Images are reviewed in the axial, sagittal, and coronal planes. IV contrast was not administered as per the referring clinician. Note that the examination was performed in signi ficantly suboptimal fashion without IV contrast. A dose lowering technique was utilized adhering to the principles of ALARA. There is streak artifact from the arms which could not be elevated above the chest or abdomen. CT DOSE: 2442.35 mGy.cm FINDINGS: CHEST: Thyroid: Normal in size and heterogeneous in attenuation. Thoracic aorta: There is atherosclerotic calcification of the thoracic aorta, which is normal in oje pedro and demonstrates standard 3-vessel arch anatomy. Heart: The heart is normal in size and without pericardial effusion. The coronary arteries are densel y calcified. Lungs and pleural spaces: There is moderate emphysema. No pleural effusion or pneumothorax is seen. F oci of parenchymal scarring are noted throughout both lungs. Patchy airspace consolidation is seen th roughout the right middle and lower lobes. The trachea is clear. Secretions are noted in the right ma instem bronchus. Mediastinum: There is no mediastinal hematoma or lymphadenopathy. Luiza: Not well assessed without IV contrast. Axillae: There is no axillary lymphadenopathy. Bony thorax: The skeletal structures are osteopenic. There are mild chronic compression deformities a t T2, T3, T4, T6, T7, and T8. No lytic or blastic lesions are identified. No acute fracture is identi fied involving the bony thorax. There are subacute/healing right anterior 5th through 7th rib fractur es. Additional bilateral rib fractures are chronic/healed. There is chronic posttraumatic deformity o f the right clavicle. Arthritic change is noted in the shoulders, with postsurgical change on the rig ht. ABDOMEN AND PELVIS: Liver: The unenhanced liver is normal in size, contour, and attenuation. There is mild intrahepatic b iliary ductal dilatation. Gallbladder: Surgically absent noting clips in the gallbladder fossa. Spleen: Normal in size and attenuation. Pancreas: The unenhanced pancreas is mildly atrophic and grossly unremarkable. Adrenal glands: Unremarkable. Kidneys: The unenhanced kidneys demonstrate mild cortical atrophy. There is mild bilateral hydrourete ronephrosis, right greater than left. This is likely related to the degree of bladder distention.. No renal calculi are identified. There is no evidence of contour deforming mass lesion. Abdominal vasculature: The abdominal aorta is normal in course and caliber noting advanced atheroscle rotic calcification. Stomach and bowel: There is a small hiatal hernia. There is rectosigmoid fecal impaction and moderate constipation. No bowel obstruction is seen. There is mild rectal wall thickening and perirectal infl ammation. Postsurgical change is noted involving the right colon. The appendix is surgically absent. Peritoneum: There is no intraperitoneal free air or abdominal ascites. Lymphadenopathy: None. Pelvic viscera: The bladder is markedly distended but otherwise normal in appearance. The uterus is s urgically absent. No adnexal lesion is seen. Skeletal structures: The skeletal structures are osteopenic. The lumbosacral spine, bony pelvis, and proximal femora appear intact. There is mild lumbosacral spondylosis. No lytic or blastic lesions are seen. IMPRESSION: 1. There is no acute posttraumatic intrathoracic abnormality. 2. Patchy airspace consolidation throughout the right middle and lower lobes is typical for pneumonia /aspiration pneumonitis. Clinical correlation will be required and radiographic follow-up to resoluti on is recommended. 3. There is no pneumothorax or pleural effusion. 4. There is no evidence of solid organ injury in the abdomen or pelvis on this unenhanced examination . 5. Marked bladder distention. 6. There is mild bilateral hydroureteronephrosis, likely related to the degree of bladder distention. 7. There is rectosigmoid fecal impaction and moderate constipation. 8. There is mild rectal wall thickening and perirectal infiltration. The appearance suggests stercora l proctitis and clinical correlation will be required. 9. There are subacute/healing right anterior rib fractures. 10. No acute fracture is seen. 11. Emphysema. 12. Additional findings as above. ACT 112: Negative or not required by law. Electronically signed by: Calvin Bennett M.D. 01/22/2023 5:06 PM
[2023-01-22] MEDS ORDERED: ASPIRIN 81 MG CHEW PO STA (17:14)
[2023-01-22] MEDS ORDERED: AZITHROMYCIN 250 MG TAB PO ONE (17:14)
[2023-01-22 17:28] LABS: Appearance Urine Clear (Clear); Bilirubin Urine Negative (Negative); Blood Urine Negative (Negative); Color Urine Yellow; Glucose Urine UA Negative (Negative); Ketones Urine Negative (Negative); Leukocyte Esterase Urine Negative (Negative); Nitrite Urine Negative (Negative); Protein Urine Negative (Negative); Urobilinogen Urine Negative (Negative)
--- NOTE | 2023-01-22 18:21 | History & Physical Report ---
Date of Service January 22, 2023 Assessment & Plan (1) AMS (altered mental status): Plan: 72 y/o F w/ PMHx of chronic msk pains, COPD (current smoker 6-8/day.), anxiety, chronic benzo and narcotic use, and recent/progressive mild cognitive impairment (worsened past 2 months) who presents w/ fall 3-4 days ago and AMS since 2 days ago, worsening. - most likely secondary to pneumonia. Leukocytosis to 16.8. Procal 0.10 at admission. - is possible that benzo and narcotic use contributed, though the dose of Narcan did not appear to have effect (2) Multifocal pneumonia: Plan: - CT chest w/ RLL and RML patchy airspace consolidation - given unknown if LOC and unknown duration on floor, will include anaerobic coverage w/ Unasyn 3g IV q6h. Continue azithro (500mg day 1, 250mg days 2-5). (3) Fall: Plan: - secondary to the above. Imaging reviewed w/o acute fx. Head CT and C spine CT neg. Large L flank bruise noted. Subacute R rib fx. PT/OT evals. (4) Elevated troponin: Plan: - repeating. most consistent w/ demand ischemia in setting of pneumonia (5) Chronic obstructive pulmonary disease: Plan: - home regimen of Symbicort and albuterol neb noted. Will provide similar. Presumed mild severity per reported lack of hospitalizations/COPD flares. - per reassuring clinical status and exam, will defer systemic steroids in setting of pneumonia - current smoker; will provide nicotine patch. - vbg reassuring. mild CO2 retention (6) Sleep apnea: Plan: - has not tolerated cpap or qhs O2 in years. O2 sat goal 90. (7) Chronic musculoskeletal pain: Plan: - home meds list w/ prn oxycodone 5mg QID prn and hydrocodone-acetaminophen 10mg q6h prn though it is unclear how much patient actually takes - will provide the oxycodone at q6h prn to prevent withdrawal (8) Left leg swelling: Plan: - check bilat lower extrem venous duplex US (9) Urinary retention: Plan: - mild bilat hydroureteronephrosis and marked bladder distention on CT. recently went to void. straight cath and bladder scans prn. ua neg. utox pending (10) Constipation: Plan: - CT w/ possible stercoral colitis. Unasyn will provide appropriate coverage. Reassuring abd exam w/o tenderness or peritoneal signs. - scheduled BID miralax (11) Tachycardia: Plan: - reportedly chronic, for which she takes metoprolol. hold temporarily in setting of pneumonia. consider repeating ecg after lower HR. monitor on telemet ry (12) Anxiety: Plan: - continue home amitriptyline and buspirone. unsure if on sertraline as this is not on handwritten home meds list; family to check [facility] portal. provide reduced amount of alprazolam 1mg HS only (at home, takes 1mg BID + addition prn dose) (13) Restless leg syndrome: Plan: - continue home pramipexole Plan FEN/GI: HH. No IV fluids. (mild pulm vasc congestion on cxr) ppx: Lovenox sq 40mg BID code: DNR/DNI (has signed form in chart) dipso: med tele History of Present Illness Chief Complaint: fall, confusion Primary Care Provider: Chloe Díaz PA-C 72 y/o F w/ PMHx of chronic msk pains, COPD (current smoker 6-8/day.), anxiety, chronic benzo and narcotic use, and recent/progressive mild cognitive impairment (worsened past 2 months) who presents w/ fall 3-4 days ago and AMS since 2 days ago, worsening. Her daughter calls daily. Tried to visit today and found her laying face down on floor, so she gave 1 dose of intranasal narcan (w/o relief) and called ems. Patient came to after stimulation. She fell 3-4 days ago and injured her back, but did not hit her head. She was not confused at the time. Currently, she has 8/10 low back pain. She is unsure of the amount of narcotics she takes at home. She has hx bilat knee replacement, chronic bilateral leg pain and chronic R shoulder pain. COPD: Denies hospitalizations/flares. Has Symbicort and prn nebulizer which she has not needed in past week. Takes 2 xanax / day w ith third prn if anxiety flares. Denies cough. Denies usual issues w/ coughing/choking/aspiration. No hx VTE. Denies other VTE risk factors such as air travel or estrogen use. Patient is here w/ daughter (power of deputy prosecuting attorney) and granddaughter. Currently, she less confused than this AM. ED course: wbc 16..82. Hb stable. coags wnl. vbc ph 7.36, pCO2 63. Na 134. Cr .55. alk phos 121 stable. CK 245. hstrop 156.3. procal 0.10. ua neg. utox pending. covid neg. cta w/ stercoral coliti r mid lower lobe pneumonia vs aspiration. head ct neg. c spine ct no acute. pelvis xr neg. s/p Rocephin+azithro. blood cultures obtained after abx. vitals: slight desat to 88. now on 1.5L NC. afeb. HR ~100. Allergies Allergy/AdvReac Type Severity Reaction Status Date / Time No Known Allergies Allergy Verified 04/15/22 14:23 Home Medications Medication Instructions Recorded Confirmed Type alprazolam 1 mg tablet 1 mg PO TID 12/21/19 01/22/23 History budesonide-formoterol HFA 80 2 puff inhalation BID 12/21/19 01/22/23 History mcg-4.5 mcg/actuation aerosol inhaler (Symbicort) ezetimibe 10 mg tablet 10 mg PO HS 12/21/19 01/22/23 History hydrocodone 5 mg-acetaminophen 325 1 tab PO Q6H PRN Pain 12/21/19 01/22/23 History mg tablet oxycodone 5 mg tablet 5 mg PO QID PRN Pain 12/21/19 01/22/23 History pramipexole 0.125 mg tablet 0.125 mg PO HS 12/21/19 01/22/23 History metoprolol succinate 50 mg 50 mg PO DAILY 05/10/20 01/22/23 History tablet,extended release 24 hr albuterol sulfate 2.5 mg/3 mL 2.5 mg continuous nebulization UD 01/22/23 01/22/23 History (0.083 %) solution for nebulization amitriptyline 75 mg tablet 75 mg PO HS 01/22/23 01/22/23 History buspirone 7.5 mg tablet 7.5 mg PO UD 01/22/23 01/22/23 History cholecalciferol (vitamin D3) 50 50 mcg PO DAILY 01/22/23 01/22/23 History mcg (2,000 unit) capsule (Vitamin D3) omeprazole 20 mg capsule,delayed 20 mg PO DAILY 01/22/23 01/22/23 History release sertraline 50 mg tablet 50 mg PO UD 01/22/23 01/22/23 History Past Med/Surg History Medical History (Updated 01/22/23 @ 19:57 by Neri Holden MD) Anxiety Chronic obstructive pulmonary disease Depression Osteoarthritis Pseudoangiomatous stromal hyperplasia of breast Restless leg syndrome Sleep apnea CPAP + OXYGEN (REPORTS NO LONGER USING CPAP OR OXYGEN BC UNABLE TO TOLERATE) Smoker unmotivated to quit Spinal stenosis Tachycardia Chronic. Managed with Metoprolol. Was 106bpm at PCP clearance visit. Surgical History History of bowel resection benign tumor History of colonoscopy History of esophagogastroduodenoscopy (EGD) History of left knee replacement History of right knee joint replacement History of rotator cuff surgery Rt History of surgery on upper extremity RUE; hardware present History of tonsillectomy History of total abdominal hysterectomy and bilateral salpingo-oophorectomy Nausea and vomiting after administration of anesthetic agent Family History Other No family history of adverse response to anesthesia Social History Smoking Status: Current every day smoker Tobacco Type: Cigarettes Cigarettes Per Day: 40; Second Hand Exposure: Yes (kids smoke, parents smoked); Tobacco Cessation Education Requested by Patient: No Hx Alcohol Use: No Hx Substance Use: Yes Last Used Substance: Unknown Preferred Language: Slovak Communication Ability: Effective Field Hand Required: No Beliefs That Will Affect Care: None marital status: Single Current Living Situation: Alone current occupational status: retired Other Information That Helps Us Care for You: No Feels Safe at Home: Yes Safety Concerns: Feels Safe At This Time Assistive Devices: Cane, Denture - Upper, Glasses, Lift Chair, Nebulizer and Walker Review of Systems Review of Systems: All systems reviewed & are unremarkable except as noted in HPI & below Physical Exam Physical Exam: General: A&Ox4 to person, place, year, and context (knew she fell, but did not know full reason EMS was called). NAD. Cooperative. Slight confusion in that she did not know how much pain medication she takes. HEENT: Atraumatic, normocephalic. EOMI. PERRL. No nystagmus. No obvious jvd on right. Pulm: R mid and upper exp wheezing vs transmitted upper airway. R base quiet. L mid and lower insp crackles.Symmetrical chest rise. No respiratory distress. No accessory muscle use. Cardiac: RRR, -mrg. Radial pulses intact and symmetrical. Puffy bilat lower extrem. No pitting. LLE worse w/ slight increased warmth and slight erythema. Abdominal: Nontender, nondistended, soft. No rebound, guarding, or rigidity. Integ: Large [id number] ecchymosis at L flank; mildly tender. Msk: No midline spinal ttp. Neuro: CN II-XII intact. Normal strength and sensation of extrem. Results & Data Results & Data ([facility]) Vital Signs (Past 12 Hours) Vital Signs Temp Pulse Resp BP Pulse Ox O2 Del Method O2 Flow Rate 01/22/23 14:56 94 Nasal Cannula 01/22/23 14:56 88 L Room Air, Nasal Cannula 0 01/22/23 14:56 36.8 C 98 H 18 157/87 H 88 L Room Air Laboratory Results Cardiac Enzymes 01/22/23 Range/Units 14:44 AST 16 (13-39) U/L Troponin I High Sens 156.3 H* (0-14) pg/ml Coagulation 01/22/23 01/22/23 Range/Units 14:44 15:33 PT Cancelled 10.4 APTT 27.7 (21.0-31.0) Seconds CBC 01/22/23 Range/Units 14:44 WBC 16.82 H (4.8-10.8) K/ul RBC 4.37 (4.20-5.40) M/uL Hgb 13.5 (12.0-16.0) g/dl Hct 39.4 (37.0-47.0) % Plt Count 220 (130-400) K/uL Neut # (Auto) 14.21 H (1.40-6.50) K/uL Lymph # (Auto) 1.68 (1.2-3.4) K/uL [place] # (Auto) 0.82 H (0.11-0.59) K/uL Eos # (Auto) 0.02 (0-0.50) K/uL Baso # (Auto) 0.03 (0-0.2) K/uL Comprehensive Metabolic Panel 01/22/23 Range/Units 14:44 Sodium 134 L (136-145) mmol/L Potassium 4.3 (3.5-5.1) mmol/L Chloride 97 L (98-107) mmol/L Carbon Dioxide 33 H (21-32) mmol/L BUN 8 (6-23) mg/dl Creatinine 0.55 L (0.6-1.2) mg/dl Glucose 106 H (70-99(Fasting)) mg/dl Calcium 8.7 (8.5-10.1) mg/dl AST 16 (13-39) U/L ALT 10 (7-52) U/L Alkaline Phosphatase 121 H (34-104) U/L Total Protein 6.8 (6.0-8.3) gm/dl Albumin 4.0 (3.4-5.0) gm/dl Intake and Output 01/22/23 01/22/23 01/22/23 06:59 14:59 22:59 Intake Total 70 / 70 Balance 70 / 70 Intake: IV 70 / 70 cefTRIAXone SODIUM 2,000 mg In 70 / 70 70 ml @ 140 mls/hr IV NOW STA Rx#:[id number] Other: Weight 88.4 kg Weight Measurement Method Built in [facility] Patient Weight 01/23/23 06:59 Weight 88.4 kg Diagnostic Findings Chest X-Ray 01/22/23 14:52 XR chest 1V portable CLINICAL HISTORY: weakness COMPARISON STUDY: Chest CT December 05, 2020. Chest radiograph September 13, 2015. FINDINGS: Old right clavicular and old right-sided rib fractures are present. There are postoperative findings within the right shoulder. No pneumothorax or pleural effusion is present. Mild cardiomegaly is noted with pulmonary vascular congestion. There is possible right basilar opacity. There is no pneumothorax or pleural effusion. IMPRESSION: 1. Possible right lower lung airspace opacity. Radiographic follow-up to ensure resolution is recommended. 2. No pneumothorax. 3. Mild cardiomegaly with pulmonary vascular congestion. ACT 112: Negative or not required by law. Electronically signed by: Cleve Cook M.D. 01/22/2023 3:[address] 01/22/23 14:52 CT SCAN OF THE BRAIN WITHOUT IV CONTRAST CLINICAL HISTORY: Fall. Change in mental status. COMPARISON STUDY: No priors. TECHNIQUE: Unenhanced axial CT scan of the brain is performed from the vertex to the skull base. A dose lowering technique was utilized adhering to the principles of ALARA. FINDINGS: Brain parenchyma: There is age-related involutional change noting mild subcortical and periventricular microangiopathic disease. There is no hemorrh age, mass effect, or evidence of acute territorial ischemia by CT criteria. Gruber-white matter differentiation is preserved. No extra-axial fluid collection is seen. Ventricles, sulci, cisterns: Prominent secondary to involutional change. Intracranial vasculature: There is atherosclerotic calcification of the cavernous carotid and vertebral arteries. Calvarium: The skeletal structures are osteopenic. No depressed calvarial fracture is seen. Sinuses and mastoids: The visualized paranasal sinuses are clear. The mastoid air cells are well pneumatized. Orbits: The bony orbits are grossly intact. IMPRESSION: There is no hemorrhage, mass effect, or evidence of acute territorial ischemia by CT criteria. ACT 112: Negative or not required by law. Electronically signed by: Calvin Bennett M.D. 01/22/2023 4:53 PM Pelvis X-Ray 01/22/23 14:52 XR pelvis 1-2V routine CLINICAL HISTORY: falls TECHNIQUE: A single frontal view of the pelvis was obtained. Comparison: None available at the time of this dictation. FINDINGS: There is no evidence of an acute fracture. Joint spaces are well-preserved. No soft tissue abnormality is seen. IMPRESSION: No evidence of acute osseous injury. ACT 112: Negative or not required by law. Electronically signed by: Stepan Brandt M.D. 01/22/2023 3:[address] 01/22/23 15:00 CT cervical spine wo con CLINICAL HISTORY: falls TECHNIQUE: Multidetector row helical CT of the cervical spine was performed without administration of intravenous contrast. Coronal and sagittal reformations were obtained. Automated dose lowering techniques and/or adjustment according to patient size were utilized for this exam. Comparison: None available at the time of this dictation. FINDINGS: No acute fractures or subluxations are identified. Degenerative changes are seen in the visualized spine. The alignment is normal. Carotid artery calcifications are incidentally noted bilaterally. IMPRESSION: Degenerative changes without evidence of acute bony injury. ACT 112: Negative or not required by law. Electronically signed by: Stepan Brandt M.D. 01/22/2023 4:57 PM Abdomen/Pelvis CT 01/22/23 16:13 CT SCAN OF THE CHEST, ABDOMEN, AND PELVIS WITHOUT IV CONTRAST CLINICAL HISTORY: Fall. COMPARISON STUDY: Chest CT dated 12/05/2020. TECHNIQUE: Unenhanced CT scan of the chest, abdomen, and pelvis was performed from the thoracic inlet to the proximal femora. Images are reviewed in the axial, sagittal, and coronal planes. IV contrast was not administered as per the referring clinician. Note that the examination was performed in significantly suboptimal fashion without IV contrast. A dose lowering technique was utilized adhering to the principles of ALARA. There is streak artifact from the arms which could not be elevated above the chest or abdomen. CT DOSE: 2442.35 mGy.cm FINDINGS: CHEST: Thyroid: Normal in size and heterogeneous in attenuation. Thoracic aorta: There is atherosclerotic calcification of the thoracic aorta, which is normal in caliber and demonstrates standard 3-vessel arch anatomy. Heart: The heart is normal in size and without pericardial effusion. The coronary arteries are densely calcified. Lungs and pleural spaces: There is moderate emphysema. No pleural effusion or pneumothorax is seen. Foci of parenchymal scarring are noted throughout both lungs. Patchy airspace consolidation is seen throughout the right middle and lower lobes. The trachea is clear. Secretions are noted in the right mainstem bronchus. Mediastinum: There is no mediastinal hematoma or lymphadenopathy. Luiza: Not well assessed without IV contrast. Axillae: There is no axillary lymphadenopathy. Bony thorax: The skeletal structures are osteopenic. There are mild chronic compression deformities at T2, T3, T4, T6, T7, and T8. No lytic or blastic lesions are identified. No acute fracture is identified involving the bony thorax. There are subacute/healing right anterior 5th through 7th rib fractures. Additional bilateral rib fractures are chronic/healed. There is chronic posttraumatic deformity of the right clavicle. Arthritic change is noted in the shoulders, with postsurgical change on the right. ABDOMEN AND PELVIS: Liver: The unenhanced liver is normal in size, contour, and attenuation. There is mild intrahepatic biliary ductal dilatation. Gallbladder: Surgically absent noting clips in the gallbladder fossa. Spleen: Normal in size and attenuation. Pancreas: The unenhanced pancreas is mildly atrophic and grossly unremarkable. Adrenal glands: Unremarkable. Kidneys: The unenhanced kidneys demonstrate mild cortical atrophy. There is mild bilateral hydroureteronephrosis, right greater than left. This is likely related to the degree of bladder distention.. No renal calculi are identified. There is no evidence of contour deforming mass lesion. Abdominal vasculature: The abdominal aorta is normal in course and caliber noting advanced atherosclerotic calcification. Stomach and bowel: There is a small hiatal hernia. There is rectosigmoid fecal impaction and moderate constipation. No bowel obstruction is seen. There is mild rectal wall thickening and perirectal inflammation. Postsurgical change is noted involving the right colon. The appendix is surgically absent. Peritoneum: There is no intraperitoneal free air or abdominal ascites. Lymphadenopathy: None. Pelvic viscera: The bladder is markedly distended but otherwise normal in appea kendal. The uterus is surgically absent. No adnexal lesion is seen. Skeletal structures: The skeletal structures are osteopenic. The lumbosacral spine, bony pelvis, and proximal femora appear intact. There is mild lumbosacral spondylosis. No lytic or blastic lesions are seen. IMPRESSION: 1. There is no acute posttraumatic intrathoracic abnormality. 2. Patchy airspace consolidation throughout the right middle and lower lobes is typical for pneumonia/aspiration pneumonitis. Clinical correlation will be required and radiographic follow-up to resolution is recommended. 3. There is no pneumothorax or pleural effusion. 4. There is no evidence of solid organ injury in the abdomen or pelvis on this unenhanced examination. 5. Marked bladder distention. 6. There is mild bilateral hydroureteronephrosis, likely related to the degree of bladder distention. 7. There is rectosigmoid fecal impaction and moderate constipation. 8. There is mild rectal wall thickening and perirectal infiltration. The appearance suggests stercoral proctitis and clinical correlation will be required. 9. There are subacute/healing right anterior rib fractures. 10. No acute fracture is seen. 11. Emphysema. 12. Additional findings as above. ACT 112: Negative or not required by law. Electronically signed by: Calvin Bennett M.D. 01/22/2023 5:[address] 01/22/23 16:13 CT SCAN OF THE CHEST, ABDOMEN, AND PELVIS WITHOUT IV CONTRAST CLINICAL HISTORY: Fall. COMPARISON STUDY: Chest CT dated 12/05/2020. TECHNIQUE: Unenhanced CT scan of the chest, abdomen, and pelvis was performed from the thoracic inlet to the proximal femora. Images are reviewed in the axial, sagittal, and coronal planes. IV contrast was not administered as per the referring clinician. Note that the examination was performed in significantly suboptimal fashion without IV contrast. A dose lowering technique was utilized adhering to the principles of ALARA. There is streak artifact from the arms which could not be elevated above the chest or abdomen. CT DOSE: 2442.35 mGy.cm FINDINGS: CHEST: Thyroid: Normal in size and heterogeneous in attenuation. Thoracic aorta: There is atherosclerotic calcification of the thoracic aorta, which is normal in caliber and demonstrates standard 3-vessel arch anatomy. Heart: The heart is normal in size and without pericardial effusion. The coronary arteries are densely calcified. Lungs and pleural spaces: There is moderate emphysema. No pleural effusion or pneumothorax is seen. Foci of parenchymal scarring are noted throughout both lungs. Patchy airspace consolidation is seen throughout the right middle and lower lobes. The trachea is clear. Secretions are noted in the right mainstem bronchus. Mediastinum: There is no mediastinal hematoma or lymphadenopathy. Luiza: Not well assessed without IV contrast. Axillae: There is no axillary lymphadenopathy. Bony thorax: The skeletal structures are osteopenic. There are mild chronic compression deformities at T2, T3, T4, T6, T7, and T8. No lytic or blastic lesions are identified. No acute fracture is identified involving the bony thorax. There are subacute/healing right anterior 5th through 7th rib fractures. Additional bilateral rib fractures are chronic/healed. There is chronic posttraumatic deformity of the right clavicle. Arthritic change is noted in the shoulders, with postsurgical change on the right. ABDOMEN AND PELVIS: Liver: The unenhanced liver is normal in size, contour, and attenuation. There is mild intrahepatic biliary ductal dilatation. Gallbladder: Surgically absent noting clips in the gallbladder fossa. Spleen: Normal in size and attenuation. Pancreas: The unenhanced pancreas is mildly atrophic and grossly unremarkable. Adrenal glands: Unremarkable. Kidneys: The unenhanced kidneys demonstrate mild cortical atrophy. There is mild bilateral hydroureteronephrosis, right greater than left. This is likely related to the degree of bladder distention.. No renal calculi are identified. There is no evidence of contour deforming mass lesion. Abdominal vasculature: The abdominal aorta is normal in course and caliber noting advanced atherosclerotic calcification. Stomach and bowel: There is a small hiatal hernia. There is rectosigmoid fecal impaction and moderate constipation. No bowel obstruction is seen. There is mild rectal wall thickening and perirectal inflammation. Postsurgical change is noted involving the right colon. The appendix is surgically absent. Peritoneum: There is no intraperitoneal free air or abdominal ascites. Lymphadenopathy: None. Pelvic viscera: The bladder is markedly distended but otherwise normal in appearance. The uterus is surgically absent. No adnexal lesion is seen. Skeletal structures: The skeletal structures are osteopenic. The lumbosacral spine, bony pelvis, and proximal femora appear intact. There is mild lumbosacral spondylosis. No lytic or blastic lesions are seen. IMPRESSION: 1. There is no acute posttraumatic intrathoracic abnormality. 2. Patchy airspace consolidation throughout the right middle and lower lobes is typical for pneumonia/aspiration pneumonitis. Clinical correlation will be required and radiographic follow-up to resolution is recommended. 3. There is no pneumothorax or pleural effusion. 4. There is no evidence of solid organ injury in the abdomen or pelvis on this unenhanced examination. 5. Marked bladder distention. 6. There is mild bilateral hydroureteronephrosis, likely related to the degree of bladder distention. 7. There is rectosigmoid fecal impaction and moderate constipation. 8. There is mild rectal wall thickening and perirectal infiltration. The appearance suggests stercoral proctitis and clinical correlation will be required. 9. There are subacute/healing right anterior rib fractures. 10. No acute fracture is seen. 11. Emphysema. 12. Additional findings as above. ACT 112: Negative or not required by law. Electronically signed by: Calvin Bennett M.D. 01/22/2023 5:06 PM ECG Additional Comments: ecg reviewed by me. Questionably sinus w/ rate of 96. Does not have ST elevation. Normal axis. + artifact (spikes noted at several areas). Otherwise, appears similar to 04/29/2020 ecg. Will await official read. Code Status & VTE Plan Code Status DNR/DNI VTE Prophylaxis Plan VTE Prophylaxis will be ordered: Yes Supervising Physician Co-Signing Physician Notes I personally saw and examined the patient. I verified all logan points and agree with resident Dr Neri Holden, with the following exceptions and/or additions: 72 year old female here with acute confusion. Chronically taking oxycodone, [place] and Xanax - no acute changes. Unable to get any history from the patient. Please see history as above. O/E HS RRR, right base crackles, left > right leg edema with bilateral calf pain A/P PNA - Unasyn and azithromycin Bilateral calf pain - US venous doppler Polypharmacy - highly recommend only taking one opiate, she wishes to stay on oxycodone currently. Will continue xanax HS and additional one PRN. Reduced doses due to acute mental status changes Resident Activity Tracking Resident Involvement: Resident Care Provided Care Provided: Adult Hospital Medicine
[2023-01-22 18:24] LABS: Amphetamines+Metham, Urine Neg (Neg); Barbiturates, Urine Neg (Neg); Benzodiazepine, Urine Pos (Neg); Cocaine, Urine Neg (Neg); MDMA (Ecstacy), Urine Neg (Neg); Methadone, Urine Neg (Neg); Opiate, Urine Pos (Neg); Phencyclidine, Urine Neg (Neg)
[2023-01-22] MEDS ORDERED: AMPICILLIN/SULBACTAM SOD 3,000 MG in 0.9 % SODIUM CHLORIDE 100 ML IV STA (19:34)
[2023-01-22] MEDS ORDERED: ENOXAPARIN INJ 40 MG/0.4 ML SYR SQ STA (19:34)
--- NOTE | 2023-01-22 21:47 | Ultrasound Report ---
ULTRASOUND BILATERAL LOWER EXTREMITY VENOUS CLINICAL HISTORY: Falls. Leg pain. COMPARISON STUDY: No priors TECHNIQUE: Real-time, grayscale, and color Doppler sonography of the deep veins of the right and left lower extremity was performed from the inguinal crease to the calf. Compression and augmentation wer e utilized. FINDINGS: There is no sonographic evidence of deep venous thrombosis identified in the right or left lower extremity. The common femoral, superficial femoral, and popliteal veins are patent and normally compressible bilaterally. The greater saphenous vein and the profunda femoris vein at the junction w ith the common femoral vein are clear in both legs. The visualized calf veins are patent bilaterally. IMPRESSION: There is no sonographic evidence of deep venous thrombosis identified in the right or lef t lower extremity. ACT 112: Negative or not required by law. Electronically signed by: Calvin Bennett M.D. 01/22/2023 9:44 PM
[2023-01-22] MEDS ORDERED: ONDANSETRON INJ 2 MG/ML 2 ML VIAL IV PRN (22:05)
[2023-01-22] MEDS ORDERED: ALBUT/IPRATROP 3MG/0.5MG NEB 3 ML VIAL NEB STA (22:09)
[2023-01-22] MEDS ORDERED: BUDESONIDE/FORMOTEROL FUMARATE 80/4.5 60 PUFFS/INHALER INH STA (22:13)
[2023-01-22] MEDS ORDERED: oxyCODONE HCL IR 5 MG TAB (IMMEDIATE RELEASE) PO STA (22:13)
[2023-01-22] MEDS ORDERED: FLUTICASONE/VILANTEROL 100/25MCG 14 PUFFS/INHALER INH STA (22:22)
[2023-01-22] MEDS: ALPRAZolam 0.5 MG TABLET PO SCH (22:59)
[2023-01-22] MEDS: PRAMIPEXOLE DIHYDROCHLO 0.25 MG TAB PO SCH (23:01)
[2023-01-22] MEDS: AMITRIPTYLINE HCL 25 MG TAB PO SCH (23:01)
[2023-01-22] MEDS: busPIRone 7.5 MG TAB PO SCH (23:03)
[2023-01-23] MEDS: AMPICILLIN/SULBACTAM SOD 3,000 MG in 0.9 % SODIUM CHLORIDE 100 ML IV SCH ×4 (02:01→20:53)
[2023-01-23 06:36] LABS: Basophils # (auto) 0.02 K/uL (0-0.2); Basophils % (auto) 0.2 %; Eosinophils # (auto) 0.07 K/uL (0-0.50); Eosinophils % (auto) 0.8 %; Hematocrit (blood only) 35.7 % (37.0-47.0); Hemoglobin 11.9 g/dl (12.0-16.0); Immature Granulocytes # (auto) 0.03 K/uL (0.01-0.20); Immature Granulocytes % (auto) 0.3 %; Lymphocytes # (auto) 1.81 K/uL (1.2-3.4); Lymphocytes % (auto) 20.8 %; Mean Corpuscular Hemoglobin 30.4 pg (25.0-34.0); Mean Corpuscular Hgb Conc 33.3 g/dL (32.0-36.0); Mean Corpuscular Volume 91.3 fL (80.0-100.0); Mean Platelet Volume 10.1 fL (9.4-12.4); Monocytes # (auto) 0.54 K/uL (0.11-0.59); Monocytes % (auto) 6.2 %; Neutrophils # (auto) 6.22 K/uL (1.40-6.50); Neutrophils % (auto) 71.7 %; Platelet Count 218 K/uL (130-400); RDW Coefficient of Variation 12.9 % (11.5-14.5); RDW Standard Deviation 42.8 fL (36.4-46.3); Red Blood Count 3.91 M/uL (4.20-5.40); White Blood Count 8.69 K/ul (4.8-10.8)
[2023-01-23 06:40] LABS: Albumin Globulin Ratio 1.5 (0.9-2); Albumin Level 3.5 gm/dl (3.4-5.0); Bilirubin,Total 0.5 mg/dl (0.2-1.0); Calcium 8.5 mg/dl (8.5-10.1); Creatinine Clr Calc Pharmacy 101.3 ml/min; Est GFR (African American) 112.9 ml/min; Est GFR (Non-African American) 97.4 ml/min; Globulin 2.4 gm/dl (2.5-4.0); Potassium 3.6 mmol/L (3.5-5.1); Total Protein 5.9 gm/dl (6.0-8.3)
--- NOTE | 2023-01-23 06:48 | Hospitalist Progress Note ---
Date of Service January 23, 2023 Assessment & Plan (1) AMS (altered mental status): Plan: 72 y/o F w/ PMHx of chronic msk pains, COPD (current smoker 6-8/day.), anxiety, chronic benzo and narcotic use, and recent/progressive mild cognitive impairment (worsened past 2 months) who presents w/ fall 3-4 days ago and AMS since 2 days ago, worsening. AMS - Etiology likely multifactorial-> polypharmacy, acute infection - alprazolam qHS, could consider resuming home dose of TID if her mental status continues to improve - Moving forward will need to re consider her anxiety/pain medications as she is on a number of mediations that could cause AMS and other side effects side urinary retention and constipation. Pneumonia - CT chest w/ RLL and RML patchy airspace consolidation - given unknown if LOC and unknown duration on floor, will include anaerobic coverage w/ Unasyn 3g IV q6h. Continue azithro (500mg day 1, 250mg days 2-5). - If she remains clinically stable could consider transitioning Augmentin mateusz rrow Fall - Imaging reviewed w/o acute fx. Head CT and C spine CT neg. Large L flank bruise noted. Subacute R rib fx. -PT/OT evals. Elevated Troponin -downtrending. most consistent w/ demand ischemia in setting of pneumonia COPD - home regimen of Symbicort and albuterol neb noted. Will provide similar. Presumed mild severity per reported lack of hospitalizations/COPD flares. - per reassuring clinical status and exam, will defer systemic steroids in setting of pneumonia - current smoker; will provide nicotine patch. - vbg reassuring. mild CO2 retention Sleep Apnea - has not tolerated cpap or qhs O2 in years. O2 sat goal 90. Chronic MSK Pain - home meds list w/ prn oxycodone 5mg QID prn and hydrocodone-acetaminophen 10mg q6h prn - plan for oxycodone q6h prn Left Leg Swelling - bilat lower extrem venous duplex US negative Urinary Retention -check bilat lower extrem venous duplex US - Has been voiding normally Constipation - CT w/ possible stercoral colitis. Low suspicion given her clinic picture - scheduled BID miralax - has had 2 bowel movements Tachycardia - reportedly chronic, for which she takes metoprolol. Currently being held Anxiety -continue home amitriptyline and buspirone. provide reduced amount of alprazolam 1mg HS only (at home, takes 1mg BID + addition prn dose). Will review home med list with daughter/granddaughter Restless leg syndrome - continue home pramipexole (2) Multifocal pneumonia: (3) Fall: (4) Elevated troponin: (5) Chronic obstructive pulmonary disease: (6) Sleep apnea: (7) Chronic musculoskeletal pain: (8) Left leg swelling: (9) Urinary retention: (10) Constipation: (11) Tachycardia: (12) Anxiety: (13) Restless leg syndrome: Plan FEN/GI: HH. No IV fluids. (mild pulm vasc congestion on cxr) ppx: Lovenox sq 40mg BID code: DNR/DNI (has signed form in chart) dipso: med tele Admission and Anticipated Discharge Date Admission Date: January 22, 2023 Supervising Physician Co-Signing Physician Notes Attending attestation Pt seen and examined in concert with Dr. Desir. In agreement with the documented findings as noted in the resident documentation with any exceptions or additions as noted here. Patient resting comfortably in bed with family at bedside reporting significant improvement in fatigue from previous, though having increased anxiety as has not had her normal TID benzodiazepine. Understanding re: why we are making daily in the setting of recent unexplained change in mental status and desire to minimize psychoactive medications, will await qHS dosing On examination, S1/S2 nl RRR no MCG. Decreased breathsounds R base with faint rales. Abd NT/ND BS+ve Metabolic encephalopathy, multiple potential contributing causes - see below RLL PNA, concern for aspiration - will continue present abx regimen, transition to augmentin and azithromycin tomorrow to complete course. Check CBC, BMP. Generalized anxiety disorder w/ polypharmacy - sertraline, pramipexole, buspirone, amitriptyline, alprazolam TID - significant improvement in mental status makes this a likely culprit. Agree w/ need to streamline these therapies. Restarted amitriptyline on admission. Will continue w/ qHS alprazolam. Consider daytime buspirone in place of alprazolam with gradual reintroduction. Would strongly consider adjustment re: amitriptyline rather than co-admin of sertraline Constipation with concern for stercoral proctitis on CT - no symptoms reported at present by patient, having bowel movements daily on bowel regimen currently. Monitor and low threshold to uptitrate. Tachycardia, chronic - restart metoprolol and monitor JONI not on CPAP - may be contributing to anxiety, daytime symptoms - would recommend explore with PCP Else see resident documentation as noted. Subjective Doing well this morning. States that she is feeling significantly better than yesterday. Had a bowel movement last night and another this morning. Voiding normally. Tolerating good PO intake. Review of Systems Review of Systems: As per above Physical Exam Physical Exam: Constitutional: well-appearing, no acute distress HEENT: NCAT, no conjunctival injection CV: regular rhythm, no murmur appreciated, extremities well-perfused, no LE edema Resp: decreased breath sounds diffusely, no wheezes/rales/rhonchi appreciated, no increased work of breathing GI: soft, nondistended, nontender, BS normoactive MSK: no gross deformities appreciated Skin: warm, dry, no rash appreciated Neuro: alert, oriented, no focal neurologic deficit appreciated Results & Data Results & Data ([facility]) Vital Signs (Past 12 Hours) Vital Signs Temp Pulse Pulse Pulse Resp BP BP 01/23/23 03:00 37.0 C 77 20 122/69 01/23/23 00:00 85 01/22/23 22:05 01/22/23 22:29 82 16 01/22/23 22:10 01/22/23 22:10 36.9 C 92 H 22 148/77 H 01/22/23 21:14 01/22/23 20:58 88 18 127/73 01/22/23 19:28 36.9 C 86 18 125/100 Pulse Ox Pulse Ox O2 Del Method O2 Del Method O2 Flow Rate O2 Flow Rate 01/23/23 03:00 95 Nasal Cannula 3 01/23/23 00:00 01/22/23 22:05 94 Nasal Cannula 3 01/22/23 22:29 95 Nasal Cannula 3 01/22/23 22:10 Nasal Cannula 3 01/22/23 22:10 94 Nasal Cannula 3 01/22/23 21:14 Nasal Cannula 1 01/22/23 20:58 94 Room Air 01/22/23 19:28 Nasal Cannula 1 Resident Activity Tracking Resident Involvement: Resident Care Provided Care Provided: Adult [facility]
[2023-01-23 06:52] LABS: Troponin I High Sensitivity 98.5 pg/ml (0-14)
[2023-01-23] MEDS: ALBUT/IPRATROP 3MG/0.5MG NEB 3 ML VIAL NEB SCH ×2 (07:26→19:57)
[2023-01-23] MEDS: FLUTICASONE/VILANTEROL 100/25MCG 14 PUFFS/INHALER INH SCH (08:16)
[2023-01-23] MEDS: PANTOprazole 40 MG TAB PO SCH (08:16)
[2023-01-23] MEDS: ENOXAPARIN INJ 40 MG/0.4 ML SYR SQ SCH ×2 (08:17→20:57)
[2023-01-23] MEDS: NYSTATIN POWDER 15GM BTL EXT SCH ×2 (08:17→20:57)
[2023-01-23] MEDS: NICOTINE 7 MG/24 HR TDSY TD SCH (08:17)
[2023-01-23] MEDS: POLYETHYLENE (MIRALAX) 17 GM PACK PO SCH ×2 (08:17→20:58)
[2023-01-23] MEDS ORDERED: BUDESONIDE/FORMOTEROL FUMARATE 80/4.5 60 PUFFS/INHALER INH SCH (09:00)
--- NOTE | 2023-01-23 10:54 | Billing Data ---
Date of Service January 22, 2023 Coding Level of Care Code 53411 INT INP/OBS CARE
[2023-01-23] MEDS: oxyCODONE HCL IR 5 MG TAB (IMMEDIATE RELEASE) PO PRN ×2 (11:07→20:55)
--- NOTE | 2023-01-23 11:23 | Electrocardiogram Report ---
Test Reason : Blood Pressure : / mmHG Vent. Rate : 077 BPM Atrial Rate : 077 BPM P-R Int : 170 ms QRS Dur : 096 ms QT Int : 400 ms P-R-T Axes : 064 011 009 degrees QTc Int : 452 ms Normal sinus rhythm Normal ECG Confirmed by Elias Posey ([id number]) on 01/23/2023 11:22:45 AM Referred By: REFERRED SELF Confirmed By:Que Posey
[2023-01-23] MEDS: AZITHROMYCIN 250 MG TAB PO SCH (17:08)
[2023-01-23] MEDS: ALPRAZolam 0.5 MG TABLET PO SCH (20:54)
[2023-01-23] MEDS: AMITRIPTYLINE HCL 25 MG TAB PO SCH (20:56)
[2023-01-23] MEDS: busPIRone 7.5 MG TAB PO SCH (20:56)
[2023-01-23] MEDS: EZETIMIBE 10 MG TABLET PO SCH (20:57)
[2023-01-23] MEDS: PRAMIPEXOLE DIHYDROCHLO 0.25 MG TAB PO SCH (20:58)
[2023-01-24] MEDS: AMPICILLIN/SULBACTAM SOD 3,000 MG in 0.9 % SODIUM CHLORIDE 100 ML IV SCH ×2 (02:43→09:37)
--- NOTE | 2023-01-24 06:52 | Hospitalist Progress Note ---
Date of Service January 24, 2023 Assessment & Plan (1) AMS (altered mental status): Plan: 72 y/o F w/ PMHx of chronic msk pains, COPD (current smoker 6-8/day.), anxiety, chronic benzo and narcotic use, and recent/progressive mild cognitive impairment (worsened past 2 months) who presents w/ fall 3-4 days ago and AMS since 2 days ago, worsening. AMS - Etiology likely multifactorial-> polypharmacy, acute infection - Moving forward will need to re consider her anxiety/pain medications as she is on a number of mediations that could cause AMS and other side effects side urinary retention and constipation. Pneumonia - CT chest w/ RLL and RML patchy airspace consolidation - given unknown if LOC and unknown duration on floor. Continue azithro (500mg day 1, 250mg days 2-5). Will transition from Unasyn to Augmentin - Plan to repeat CXR tomorrow morning Fall - Imaging reviewed w/o acute fx. Head CT and C spine CT neg. Large L flank bruise noted. Subacute R rib fx. -PT/OT recommending home with Life Alert Elevated Troponin -downtrending. most consistent w/ demand ischemia in setting of pneumonia COPD - home regimen of Symbicort and albuterol neb noted. Will provide similar. Presumed mild severity per reported lack of hospitalizations/COPD flares. - per reassuring clinical status and exam, will defer systemic steroids in setting of pneumonia - current smoker; will provide nicotine patch. - vbg reassuring. mild CO2 retention Sleep Apnea - has not tolerated cpap or qhs O2 in years. O2 sat goal 90. Chronic MSK Pain - home meds list w/ prn oxycodone 5mg QID prn and hydrocodone-acetaminophen 10mg q6h prn - plan for oxycodone q6h prn Left Leg Swelling - bilat lower extrem venous duplex US negative Urinary Retention -check bilat lower extrem venous duplex US - Has been voiding normally Constipation - CT w/ possible stercoral colitis. Low suspicion given her clinic picture - scheduled BID miralax - has had 2 bowel movements Tachycardia - reportedly chronic, for which she takes metoprolol. Currently being held Anxiety -continue home amitriptyline, buspirone, sertraline - Will resume home dose of Xanax Restless leg syndrome - continue home pramipexole (2) Multifocal pneumonia: (3) Fall: (4) Elevated troponin: (5) Chronic obstructive pulmonary disease: (6) Sleep apnea: (7) Chronic musculoskeletal pain: (8) Left leg swelling: (9) Urinary retention: (10) Constipation: (11) Tachycardia: (12) Anxiety: (13) Restless leg syndrome: Plan FEN/GI: HH. No IV fluids. (mild pulm vasc congestion on cxr) ppx: Lovenox sq 40mg BID code: DNR/DNI (has signed form in chart) dipso: med tele Admission and Anticipated Discharge Date Admission Date: January 22, 2023 Supervising Physician Co-Signing Physician Notes I also saw the patient confirmed logan portions of the history and physical examination. I agree with the impression and plan as noted in the resident documentation. Patient is seen midmorning. She has no complaints. She had some anxiety earlier this morning, which improved with her a.m. Xanax dose. She is alert and oriented. Exam 158/80, 104 She is pleasant. Alert. Respirations are nonlabored. Decreased breath sounds, right base. Heart is mildly tachycardic (mid 80s upon auscultation) Data CBC is within normal limits. Sodium 143, potassium 3.4, BUN 4, creatinine 0.53 AST 15, ALT 10 Impression and Plan Metabolic encephalopathy Aspiration pneumonia Overall improved today, since her medication regimen has been fairly stable, favor infection as primary etiology of her mental status change Transition to p.o. antibiotics today Continue to monitor Minimal medication changes made; will defer to PCP for reevaluation Tachycardia/hypertension Metoprolol has been restarted, continue to monitor Additional per resident documentation Subjective Codi is doing well this morning. Does feel a little anxious. Denies short of breath, chest pain. Having daily bowel movements and voiding normally. Tolerating good PO intake. Review of Systems Review of Systems: As per above Physical Exam Physical Exam: Constitutional: well-appearing, no acute distress HEENT: NCAT, no conjunctival injection CV: regular rhythm, no murmur appreciated, extremities well-perfused, no LE edema Resp: decreased breath sounds diffusely, no wheezes/rales/rhonchi appreciated, no increased work of breathing GI: soft, nondistended, nontender, BS normoactive MSK: no gross deformities appreciated Skin: warm, dry, no rash appreciated Neuro: alert, oriented, no focal neurologic deficit appreciated Results & Data Results & Data ([facility]) Vital Signs (Past 12 Hours) Vital Signs Temp Pulse Pulse Resp BP Pulse Ox O2 Del Method 01/24/23 04:00 36.8 C 89 18 134/72 92 Nasal Cannula 01/24/23 00:00 92 H 01/23/23 20:00 Nasal Cannula 01/23/23 23:10 36.8 C 83 18 124/70 92 Room Air 01/23/23 19:00 36.7 C 91 H 18 152/68 H 93 Nasal Cannula 01/23/23 19:57 99 H 20 93 Room Air O2 Flow Rate 01/24/23 04:00 1 01/24/23 00:00 01/23/23 20:00 2 01/23/23 23:10 01/23/23 19:00 1 01/23/23 19:57
[2023-01-24] MEDS: ALBUT/IPRATROP 3MG/0.5MG NEB 3 ML VIAL NEB SCH ×2 (07:16→19:49)
[2023-01-24 08:54] LABS: Basophils # (auto) 0.02 K/uL (0-0.2); Basophils % (auto) 0.2 %; Eosinophils # (auto) 0.06 K/uL (0-0.50); Eosinophils % (auto) 0.7 %; Hematocrit (blood only) 38.6 % (37.0-47.0); Hemoglobin 13.1 g/dl (12.0-16.0); Immature Granulocytes # (auto) 0.03 K/uL (0.01-0.20); Immature Granulocytes % (auto) 0.4 %; Lymphocytes # (auto) 2.07 K/uL (1.2-3.4); Lymphocytes % (auto) 24.3 %; Mean Corpuscular Hemoglobin 30.5 pg (25.0-34.0); Mean Corpuscular Hgb Conc 33.9 g/dL (32.0-36.0); Mean Platelet Volume 9.8 fL (9.4-12.4); Monocytes # (auto) 0.49 K/uL (0.11-0.59); Monocytes % (auto) 5.8 %; Neutrophils # (auto) 5.85 K/uL (1.40-6.50); Neutrophils % (auto) 68.6 %; Platelet Count 256 K/uL (130-400); RDW Coefficient of Variation 13.1 % (11.5-14.5); RDW Standard Deviation 42.8 fL (36.4-46.3); Red Blood Count 4.29 M/uL (4.20-5.40); White Blood Count 8.52 K/ul (4.8-10.8)
[2023-01-24 09:18] LABS: Albumin Globulin Ratio 1.4 (0.9-2); Albumin Level 3.7 gm/dl (3.4-5.0); BUN Creatinine Ratio 7.5 (10-20); Bilirubin,Total 0.5 mg/dl (0.2-1.0); Calcium 8.9 mg/dl (8.5-10.1); Creatinine Clr Calc Pharmacy 95.6 ml/min; Est GFR (African American) 110.7 ml/min; Est GFR (Non-African American) 95.5 ml/min; Globulin 2.7 gm/dl (2.5-4.0); Potassium 3.4 mmol/L (3.5-5.1); Total Protein 6.4 gm/dl (6.0-8.3)
[2023-01-24] MEDS: NICOTINE 7 MG/24 HR TDSY TD SCH (09:31)
[2023-01-24] MEDS: POLYETHYLENE (MIRALAX) 17 GM PACK PO SCH ×2 (09:32→20:35)
[2023-01-24] MEDS: FLUTICASONE/VILANTEROL 100/25MCG 14 PUFFS/INHALER INH SCH (09:42)
[2023-01-24] MEDS: ENOXAPARIN INJ 40 MG/0.4 ML SYR SQ SCH ×2 (09:43→20:34)
[2023-01-24] MEDS: NYSTATIN POWDER 15GM BTL EXT SCH ×2 (09:44→20:35)
[2023-01-24] MEDS: PANTOprazole 40 MG TAB PO SCH (09:44)
[2023-01-24] MEDS: METOPROLOL SUCC 50MG EXT REL TAB PO SCH (09:44)
[2023-01-24] MEDS: oxyCODONE HCL IR 5 MG TAB (IMMEDIATE RELEASE) PO PRN ×2 (10:04→19:40)
[2023-01-24] MEDS: ALPRAZolam 0.5 MG TABLET PO PRN ×2 (12:45→20:34)
[2023-01-24] MEDS: AMOXICILLIN/CLAVULANATE 875 MG TAB PO SCH (18:11)
[2023-01-24] MEDS: AZITHROMYCIN 250 MG TAB PO SCH (18:13)
[2023-01-24] MEDS: AMITRIPTYLINE HCL 25 MG TAB PO SCH (20:34)
[2023-01-24] MEDS: busPIRone 7.5 MG TAB PO SCH (20:34)
[2023-01-24] MEDS: EZETIMIBE 10 MG TABLET PO SCH (20:34)
[2023-01-24] MEDS: PRAMIPEXOLE DIHYDROCHLO 0.25 MG TAB PO SCH (20:34)
[2023-01-24] MEDS ORDERED: SERTRALINE HCL 50 MG TABLET PO SCH (21:00)
[2023-01-25] MEDS: oxyCODONE HCL IR 5 MG TAB (IMMEDIATE RELEASE) PO PRN ×2 (01:56→08:10)
[2023-01-25] MEDS: ALBUT/IPRATROP 3MG/0.5MG NEB 3 ML VIAL NEB SCH (06:58)
[2023-01-25 07:37] LABS: Basophils # (auto) 0.02 K/uL (0-0.2); Basophils % (auto) 0.2 %; Eosinophils % (auto) 1.1 %; Hematocrit (blood only) 38.8 % (37.0-47.0); Hemoglobin 13.2 g/dl (12.0-16.0); Immature Granulocytes # (auto) 0.03 K/uL (0.01-0.20); Immature Granulocytes % (auto) 0.3 %; Lymphocytes # (auto) 1.95 K/uL (1.2-3.4); Lymphocytes % (auto) 22.1 %; Mean Corpuscular Hemoglobin 30.4 pg (25.0-34.0); Mean Corpuscular Volume 89.4 fL (80.0-100.0); Mean Platelet Volume 9.9 fL (9.4-12.4); Monocytes # (auto) 0.54 K/uL (0.11-0.59); Monocytes % (auto) 6.1 %; Neutrophils # (auto) 6.18 K/uL (1.40-6.50); Neutrophils % (auto) 70.2 %; Platelet Count 257 K/uL (130-400); RDW Coefficient of Variation 13.2 % (11.5-14.5); Red Blood Count 4.34 M/uL (4.20-5.40); White Blood Count 8.82 K/ul (4.8-10.8)
[2023-01-25 07:47] LABS: Creatinine Clr Calc Pharmacy 82.5 ml/min; Est GFR (African American) 105.7 ml/min; Est GFR (Non-African American) 91.2 ml/min
[2023-01-25] MEDS: NYSTATIN POWDER 15GM BTL EXT SCH (08:07)
[2023-01-25] MEDS: METOPROLOL SUCC 50MG EXT REL TAB PO SCH (08:07)
[2023-01-25] MEDS: ENOXAPARIN INJ 40 MG/0.4 ML SYR SQ SCH (08:07)
[2023-01-25] MEDS: PANTOprazole 40 MG TAB PO SCH (08:07)
[2023-01-25] MEDS: FLUTICASONE/VILANTEROL 100/25MCG 14 PUFFS/INHALER INH SCH (08:07)
[2023-01-25] MEDS: AMOXICILLIN/CLAVULANATE 875 MG TAB PO SCH (08:07)
[2023-01-25] MEDS: NICOTINE 7 MG/24 HR TDSY TD SCH (08:08)
[2023-01-25] MEDS: POLYETHYLENE (MIRALAX) 17 GM PACK PO SCH (08:08)
[2023-01-25] MEDS: ALPRAZolam 0.5 MG TABLET PO PRN (08:10)
--- NOTE | 2023-01-25 09:23 | Discharge Summary ---
Date of Service January 25, 2023 Admission HPI Per Admitting Provider 72 y/o F w/ PMHx of chronic msk pains, COPD (current smoker 6-8/day.), anxiety, chronic benzo and narcotic use, and recent/progressive mild cognitive impairment (worsened past 2 months) who presents w/ fall 3-4 days ago and AMS since 2 days ago, worsening. Her daughter calls daily. Tried to visit today and found her laying face down on floor, so she gave 1 dose of intranasal narcan (w/o relief) and called ems. Patient came to after stimulation. She fell 3-4 days ago and injured her back, but did not hit her head. She was not confused at the time. Currently, she has 8/10 low back pain. She is unsure of the amount of narcotics she takes at home. She has hx bilat knee replacement, chronic bilateral leg pain and chronic R shoulder pain. COPD: Denies hospitalizations/flares. Has Symbicort and prn nebulizer which she has not needed in past week. Takes 2 xanax / day with third prn if anxiety flares. Denies cough. Denies usual issues w/ coughing/choking/aspiration. No hx VTE. Denies other VTE risk factors such as air travel or estrogen use. Patient is here w/ daughter (power of disability attorney) and granddaughter. Currently, she less confused than this AM. ED course: wbc 16..82. Hb stable. coags wnl. vbc ph 7.36, pCO2 63. Na 134. Cr .55. alk phos 121 stable. CK 245. hstrop 156.3. procal 0.10. ua neg. utox pending. covid neg. cta w/ stercoral coliti r mid lower lobe pneumonia vs aspiration. head ct neg. c spine ct no acute. pelvis xr neg. s/p Rocephin+azithro. blood cultures obtained after abx. vitals: slight desat to 88. now on 1.5L NC. afeb. HR ~100. Principal Diagnosis Aspiration Pneumonia Discharge Exam Constitutional: well-appearing, no acute distress HEENT: NCAT, no conjunctival injection CV: regular rhythm, no murmur appreciated, extremities well-perfused, no LE edema Resp: decreased breath sounds diffusely, midl exp wheezing, no increased work of breathing GI: soft, nondistended, nontender, BS normoactive MSK: no gross deformities appreciated Skin: warm, dry, no rash appreciated Neuro: alert, oriented, no focal neurologic deficit appreciated Discharge Data Allergies Allergy/AdvReac Type Severity Reaction Status Date / Time No Known Allergies Allergy Verified 04/15/22 14:23 Consultations 01/22/23 17:57 ED Decision to Admit Stat Ordered Studies 01/22/23 14:52 CT head/brain wo con Stat 01/22/23 15:00 CT cervical spine wo con Stat 01/22/23 16:13 CT abd pelvis wo con Stat CT chest diagnostic wo con Stat 01/22/23 20:07 US venous duplex leg [US venous doppler LE BI] Routine Laboratory Results WBC 8.82 K/ul (4.8-10.8) 01/25/23 06:49 RBC 4.34 M/uL (4.20-5.40) 01/25/23 06:49 Hgb 13.2 g/dl (12.0-16.0) 01/25/23 06:49 Hct 38.8 % (37.0-47.0) 01/25/23 06:49 MCV 89.4 fL (80.0-100.0) 01/25/23 06:49 MCH 30.4 pg (25.0-34.0) 01/25/23 06:49 MCHC 34.0 g/dL (32.0-36.0) 01/25/23 06:49 RDW Std Deviation 43.0 fL (36.4-46.3) 01/25/23 06:49 RDW Coeff of Benny 13.2 % (11.5-14.5) 01/25/23 06:49 Plt Count 257 K/uL (130-400) 01/25/23 06:49 MPV 9.9 fL (9.4-12.4) 01/25/23 06:49 Immature Gran % (Auto) 0.3 % 01/25/23 06:49 Neut % (Auto) 70.2 % 01/25/23 06:49 Lymph % (Auto) 22.1 % 01/25/23 06:49 Pickett % (Auto) 6.1 % 01/25/23 06:49 Eos % (Auto) 1.1 % 01/25/23 06:49 Baso % (Auto) 0.2 % 01/25/23 06:49 Neut # (Auto) 6.18 K/uL (1.40-6.50) 01/25/23 06:49 Lymph # (Auto) 1.95 K/uL (1.2-3.4) 01/25/23 06:49 Pickett # (Auto) 0.54 K/uL (0.11-0.59) 01/25/23 06:49 Eos # (Auto) 0.10 K/uL (0-0.50) 01/25/23 06:49 Baso # (Auto) 0.02 K/uL (0-0.2) 01/25/23 06:49 Immature Gran # (Auto) 0.03 K/uL (0.01-0.20) 01/25/23 06:49 PT 10.4 Seconds (9.0-12.0) 01/22/23 15:33 INR 1.0 (0.9-1.1) 01/22/23 15:33 APTT 27.7 Seconds (21.0-31.0) 01/22/23 15:33 PTT Ratio 1.0 01/22/23 15:33 VBG pH 7.36 (7.36-7.41) 01/22/23 15:33 VBG pCO2 63 mmHg (38-50) H 01/22/23 15:33 VBG pO2 25 mmHg 01/22/23 15:33 VBG HCO3 36 mmol/L 01/22/23 15:33 VBG O2 Saturation < 60.0 % 01/22/23 15:33 VBG Base Excess 7.9 mEq/L 01/22/23 15:33 Sodium 143 mmol/L (136-145) 01/24/23 08:07 Potassium 3.4 mmol/L (3.5-5.1) L 01/24/23 08:07 Chloride 105 mmol/L (98-107) 01/24/23 08:07 Carbon Dioxide 33 mmol/L (21-32) H 01/24/23 08:07 Anion Gap 5 (3-11) 01/24/23 08:07 BUN 4 mg/dl (6-23) L 01/24/23 08:07 Creatinine 0.61 mg/dl (0.6-1.2) 01/25/23 06:49 Est Cr Clr Drug Dosing 82.5 ml/min 01/25/23 06:49 Est GFR ( Amer) 105.7 ml/min 01/25/23 06:49 Est GFR (Non-Af Amer) 91.2 ml/min 01/25/23 06:49 BUN/Creatinine Ratio 7.5 (10-20) L 01/24/23 08:07 Glucose 110 mg/dl (70-99(Fasting)) H 01/24/23 08:07 POC Glucose 122 mg/dl (70-99) H 01/22/23 15:16 Calcium 8.9 mg/dl (8.5-10.1) 01/24/23 08:07 Magnesium 2.0 mg/dl (1.7-2.4) 01/23/23 05:56 Total Bilirubin 0.5 mg/dl (0.2-1.0) 01/24/23 08:07 AST 15 U/L (13-39) 01/24/23 08:07 ALT 10 U/L (7-52) 01/24/23 08:07 Alkaline Phosphatase 98 U/L (34-104) 01/24/23 08:07 Total Creatine Kinase 245 U/L (26-192) H 01/22/23 14:44 Troponin I High Sens 98.5 pg/ml (0-14) H* D 01/23/23 05:56 Total Protein 6.4 gm/dl (6.0-8.3) 01/24/23 08:07 Albumin 3.7 gm/dl (3.4-5.0) 01/24/23 08:07 Globulin 2.7 gm/dl (2.5-4.0) 01/24/23 08:07 Albumin/Globulin Ratio 1.4 (0.9-2) 01/24/23 08:07 Procalcitonin 0.10 ng/ml (0-0.5) 01/22/23 15:33 TSH 0.940 uIu/ml (0.300-4.500) 01/22/23 14:44 Urine Color Yellow 01/22/23 17:05 Urine Appearance Clear (Clear) 01/22/23 17:05 Urine pH 7.0 (4.5-7.5) 01/22/23 17:05 Ur Specific [place] 1.010 (1.000-1.030) 01/22/23 17:05 Urine Protein Negative (Negative) 01/22/23 17:05 Urine Glucose (UA) Negative (Negative) 01/22/23 17:05 Urine Ketones Negative (Negative) 01/22/23 17:05 Urine Blood Negative (Negative) 01/22/23 17:05 Urine Nitrite Negative (Negative) 01/22/23 17:05 Urine Bilirubin Negative (Negative) 01/22/23 17:05 Urine Urobilinogen Negative (Negative) 01/22/23 17:05 Ur Leukocyte Esterase Negative (Negative) 01/22/23 17:05 Urine Opiates Screen Pos (Neg) H 01/22/23 17:05 Ur Methadone, Qual Neg (Neg) 01/22/23 17:05 Urine Barbiturates Neg (Neg) 01/22/23 17:05 Ur Phencyclidine (PCP) Neg (Neg) 01/22/23 17:05 U Amphetamin/Meth Scrn Neg (Neg) 01/22/23 17:05 MDMA (Ecstasy) Screen Neg (Neg) 01/22/23 17:05 U Benzodiazepines Scrn Pos (Neg) H 01/22/23 17:05 Ur Cocaine Metabolite Neg (Neg) 01/22/23 17:05 U Marijuana (THC) Screen Neg (Neg) 01/22/23 17:05 Ethyl Alcohol mg/dL < 10.0 mg/dl (<10.0) 01/22/23 15:33 SARS-CoV-2, RNA, NAAT NEGATIVE (NEGATIVE) 01/22/23 15:10 Impressions Chest X-Ray 01/22/23 14:52 XR chest 1V portable CLINICAL HISTORY: weakness COMPARISON STUDY: Chest CT December 05, 2020. Chest radiograph September 13, 2015. FINDINGS: Old right clavicular and old right-sided rib fractures are present. There are postoperative findings within the right shoulder. No pneumothorax or pleural effusion is present. Mild cardiomegaly is noted with pulmonary vascular congestion. There is possible right basilar opacity. There is no pneumothorax or pleural effusion. IMPRESSION: 1. Possible right lower lung airspace opacity. Radiographic follow-up to ensure resolution is recommended. 2. No pneumothorax. 3. Mild cardiomegaly with pulmonary vascular congestion. ACT 112: Negative or not required by law. Electronically signed by: Cleve Cook M.D. 01/22/2023 3:[address] 01/22/23 14:52 CT SCAN OF THE BRAIN WITHOUT IV CONTRAST CLINICAL HISTORY: Fall. Change in mental status. COMPARISON STUDY: No priors. TECHNIQUE: Unenhanced axial CT scan of the brain is performed from the vertex to the skull base. A dose lowering technique was utilized adhering to the principles of ALARA. FINDINGS: Brain parenchyma: There is age-related involutional change noting mild subcortical and periventricular microangiopathic disease. There is no hemorrh age, mass effect, or evidence of acute territorial ischemia by CT criteria. Gruber-white matter differentiation is preserved. No extra-axial fluid collection is seen. Ventricles, sulci, cisterns: Prominent secondary to involutional change. Intracranial vasculature: There is atherosclerotic calcification of the cavernous carotid and vertebral arteries. Calvarium: The skeletal structures are osteopenic. No depressed calvarial fracture is seen. Sinuses and mastoids: The visualized paranasal sinuses are clear. The mastoid air cells are well pneumatized. Orbits: The bony orbits are grossly intact. IMPRESSION: There is no hemorrhage, mass effect, or evidence of acute territorial ischemia by CT criteria. ACT 112: Negative or not required by law. Electronically signed by: Calvin Bennett M.D. 01/22/2023 4:53 PM Pelvis X-Ray 01/22/23 14:52 XR pelvis 1-2V routine CLINICAL HISTORY: falls TECHNIQUE: A single frontal view of the pelvis was obtained. Comparison: None available at the time of this dictation. FINDINGS: There is no evidence of an acute fracture. Joint spaces are well-preserved. No soft tissue abnormality is seen. IMPRESSION: No evidence of acute osseous injury. ACT 112: Negative or not required by law. Electronically signed by: Stepan Brandt M.D. 01/22/2023 3:[address] 01/22/23 15:00 CT cervical spine wo con CLINICAL HISTORY: falls TECHNIQUE: Multidetector row helical CT of the cervical spine was performed without administration of intravenous contrast. Coronal and sagittal reformations were obtained. Automated dose lowering techniques and/or adjustment according to patient size were utilized for this exam. Comparison: None available at the time of this dictation. FINDINGS: No acute fractures or subluxations are identified. Degenerative changes are seen in the visualized spine. The alignment is normal. Carotid artery calcifications are incidentally noted bilaterally. IMPRESSION: Degenerative changes without evidence of acute bony injury. ACT 112: Negative or not required by law. Electronically signed by: Stepan Brandt M.D. 01/22/2023 4:57 PM Abdomen/Pelvis CT 01/22/23 16:13 CT SCAN OF THE CHEST, ABDOMEN, AND PELVIS WITHOUT IV CONTRAST CLINICAL HISTORY: Fall. COMPARISON STUDY: Chest CT dated 12/05/2020. TECHNIQUE: Unenhanced CT scan of the chest, abdomen, and pelvis was performed from the thoracic inlet to the proximal femora. Images are reviewed in the axial, sagittal, and coronal planes. IV contrast was not administered as per the referring clinician. Note that the examination was performed in significantly suboptimal fashion without IV contrast. A dose lowering technique was utilized adhering to the principles of ALARA. There is streak artifact from the arms which could not be elevated above the chest or abdomen. CT DOSE: 2442.35 mGy.cm FINDINGS: CHEST: Thyroid: Normal in size and heterogeneous in attenuation. Thoracic aorta: There is atherosclerotic calcification of the thoracic aorta, which is normal in caliber and demonstrates standard 3-vessel arch anatomy. Heart: The heart is normal in size and without pericardial effusion. The coronary arteries are densely calcified. Lungs and pleural spaces: There is moderate emphysema. No pleural effusion or pneumothorax is seen. Foci of parenchymal scarring are noted throughout both lungs. Patchy airspace consolidation is seen throughout the right middle and lower lobes. The trachea is clear. Secretions are noted in the right mainstem bronchus. Mediastinum: There is no mediastinal hematoma or lymphadenopathy. Luiza: Not well assessed without IV contrast. Axillae: There is no axillary lymphadenopathy. Bony thorax: The skeletal structures are osteopenic. There are mild chronic compression deformities at T2, T3, T4, T6, T7, and T8. No lytic or blastic lesions are identified. No acute fracture is identified involving the bony thorax. There are subacute/healing right anterior 5th through 7th rib fractures. Additional bilateral rib fractures are chronic/healed. There is chronic posttraumatic deformity of the right clavicle. Arthritic change is noted in the shoulders, with postsurgical change on the right. ABDOMEN AND PELVIS: Liver: The unenhanced liver is normal in size, contour, and attenuation. There is mild intrahepatic biliary ductal dilatation. Gallbladder: Surgically absent noting clips in the gallbladder fossa. Spleen: Normal in size and attenuation. Pancreas: The unenhanced pancreas is mildly atrophic and grossly unremarkable. Adrenal glands: Unremarkable. Kidneys: The unenhanced kidneys demonstrate mild cortical atrophy. There is mild bilateral hydroureteronephrosis, right greater than left. This is likely related to the degree of bladder distention.. No renal calculi are identified. There is no evidence of contour deforming mass lesion. Abdominal vasculature: The abdominal aorta is normal in course and caliber noting advanced atherosclerotic calcification. Stomach and bowel: There is a small hiatal hernia. There is rectosigmoid fecal impaction and moderate constipation. No bowel obstruction is seen. There is mild rectal wall thickening and perirectal inflammation. Postsurgical change is noted involving the right colon. The appendix is surgically absent. Peritoneum: There is no intraperitoneal free air or abdominal ascites. Lymphadenopathy: None. Pelvic viscera: The bladder is markedly distended but otherwise normal in appea kendal. The uterus is surgically absent. No adnexal lesion is seen. Skeletal structures: The skeletal structures are osteopenic. The lumbosacral spine, bony pelvis, and proximal femora appear intact. There is mild lumbosacral spondylosis. No lytic or blastic lesions are seen. IMPRESSION: 1. There is no acute posttraumatic intrathoracic abnormality. 2. Patchy airspace consolidation throughout the right middle and lower lobes is typical for pneumonia/aspiration pneumonitis. Clinical correlation will be required and radiographic follow-up to resolution is recommended. 3. There is no pneumothorax or pleural effusion. 4. There is no evidence of solid organ injury in the abdomen or pelvis on this unenhanced examination. 5. Marked bladder distention. 6. There is mild bilateral hydroureteronephrosis, likely related to the degree of bladder distention. 7. There is rectosigmoid fecal impaction and moderate constipation. 8. There is mild rectal wall thickening and perirectal infiltration. The appearance suggests stercoral proctitis and clinical correlation will be required. 9. There are subacute/healing right anterior rib fractures. 10. No acute fracture is seen. 11. Emphysema. 12. Additional findings as above. ACT 112: Negative or not required by law. Electronically signed by: Calvin Bennett M.D. 01/22/2023 5:[address] 01/22/23 16:13 CT SCAN OF THE CHEST, ABDOMEN, AND PELVIS WITHOUT IV CONTRAST CLINICAL HISTORY: Fall. COMPARISON STUDY: Chest CT dated 12/05/2020. TECHNIQUE: Unenhanced CT scan of the chest, abdomen, and pelvis was performed from the thoracic inlet to the proximal femora. Images are reviewed in the axial, sagittal, and coronal planes. IV contrast was not administered as per the referring clinician. Note that the examination was performed in significantly suboptimal fashion without IV contrast. A dose lowering technique was utilized adhering to the principles of ALARA. There is streak artifact from the arms which could not be elevated above the chest or abdomen. CT DOSE: 2442.35 mGy.cm FINDINGS: CHEST: Thyroid: Normal in size and heterogeneous in attenuation. Thoracic aorta: There is atherosclerotic calcification of the thoracic aorta, which is normal in caliber and demonstrates standard 3-vessel arch anatomy. Heart: The heart is normal in size and without pericardial effusion. The coronary arteries are densely calcified. Lungs and pleural spaces: There is moderate emphysema. No pleural effusion or pneumothorax is seen. Foci of parenchymal scarring are noted throughout both lungs. Patchy airspace consolidation is seen throughout the right middle and lower lobes. The trachea is clear. Secretions are noted in the right mainstem bronchus. Mediastinum: There is no mediastinal hematoma or lymphadenopathy. Luiza: Not well assessed without IV contrast. Axillae: There is no axillary lymphadenopathy. Bony thorax: The skeletal structures are osteopenic. There are mild chronic compression deformities at T2, T3, T4, T6, T7, and T8. No lytic or blastic lesions are identified. No acute fracture is identified involving the bony thorax. There are subacute/healing right anterior 5th through 7th rib fractures. Additional bilateral rib fractures are chronic/healed. There is chronic posttraumatic deformity of the right clavicle. Arthritic change is noted in the shoulders, with postsurgical change on the right. ABDOMEN AND PELVIS: Liver: The unenhanced liver is normal in size, contour, and attenuation. There is mild intrahepatic biliary ductal dilatation. Gallbladder: Surgically absent noting clips in the gallbladder fossa. Spleen: Normal in size and attenuation. Pancreas: The unenhanced pancreas is mildly atrophic and grossly unremarkable. Adrenal glands: Unremarkable. Kidneys: The unenhanced kidneys demonstrate mild cortical atrophy. There is mild bilateral hydroureteronephrosis, right greater than left. This is likely related to the degree of bladder distention.. No renal calculi are identified. There is no evidence of contour deforming mass lesion. Abdominal vasculature: The abdominal aorta is normal in course and caliber noting advanced atherosclerotic calcification. Stomach and bowel: There is a small hiatal hernia. There is rectosigmoid fecal impaction and moderate constipation. No bowel obstruction is seen. There is mild rectal wall thickening and perirectal inflammation. Postsurgical change is noted involving the right colon. The appendix is surgically absent. Peritoneum: There is no intraperitoneal free air or abdominal ascites. Lymphadenopathy: None. Pelvic viscera: The bladder is markedly distended but otherwise normal in appearance. The uterus is surgically absent. No adnexal lesion is seen. Skeletal structures: The skeletal structures are osteopenic. The lumbosacral spine, bony pelvis, and proximal femora appear intact. There is mild lumbosacral spondylosis. No lytic or blastic lesions are seen. IMPRESSION: 1. There is no acute posttraumatic intrathoracic abnormality. 2. Patchy airspace consolidation throughout the right middle and lower lobes is typical for pneumonia/aspiration pneumonitis. Clinical correlation will be required and radiographic follow-up to resolution is recommended. 3. There is no pneumothorax or pleural effusion. 4. There is no evidence of solid organ injury in the abdomen or pelvis on this unenhanced examination. 5. Marked bladder distention. 6. There is mild bilateral hydroureteronephrosis, likely related to the degree of bladder distention. 7. There is rectosigmoid fecal impaction and moderate constipation. 8. There is mild rectal wall thickening and perirectal infiltration. The appearance suggests stercoral proctitis and clinical correlation will be required. 9. There are subacute/healing right anterior rib fractures. 10. No acute fracture is seen. 11. Emphysema. 12. Additional findings as above. ACT 112: Negative or not required by law. Electronically signed by: Calvin Bennett M.D. 01/22/2023 5:06 PM Venous Doppler Study 01/22/23 20:07 ULTRASOUND BILATERAL LOWER EXTREMITY VENOUS CLINICAL HISTORY: Falls. Leg pain. COMPARISON STUDY: No priors TECHNIQUE: Real-time, grayscale, and color Doppler sonography of the deep veins of the right and left lower extremity was performed from the inguinal crease to the calf. Compression and augmentation were utilized. FINDINGS: There is no sonographic evidence of deep venous thrombosis identified in the right or left lower extremity. The common femoral, superficial femoral, and popliteal veins are patent and normally compressible bilaterally. The greater saphenous vein and the profunda femoris vein at the junction with the common femoral vein are clear in both legs. The visualized calf veins are patent bilaterally. IMPRESSION: There is no sonographic evidence of deep venous thrombosis identified in the right or left lower extremity. ACT 112: Negative or not required by law. Electronically signed by: Calvin Bennett M.D. 01/22/2023 9:44 PM Hospital Course (1) AMS (altered mental status): 72 y/o F w/ PMHx of chronic msk pains, COPD (current smoker 6-8/day.), anxiety, chronic benzo and narcotic use, and recent/progressive mild cognitive impairment (worsened past 2 months) who presents w/ fall 3-4 days ago and AMS since 2 days ago, worsening. AMS - Etiology likely multifactorial-> polypharmacy, acute infection. 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 Pneumonia - CT chest w/ RLL and RML patchy airspace consolidation - Continue azithro; last day 01/27 and Agmentin for a total of 7 days (Today is day 01/07) Fall - Imaging reviewed w/o acute fx. Head CT and C spine CT neg. Large L flank bruise noted. Subacute R rib fx. -PT/OT recommending home with Life Alert Elevated Troponin -downtrending. most consistent w/ demand ischemia in setting of pneumonia COPD - home regimen of Symbicort and albuterol neb noted. Will provide similar. Presumed mild severity per reported lack of hospitalizations/COPD flares. - per reassuring clinical status and exam,deferred systemic steroids in setting of pneumonia - current smoker; nicotine patch provided. - vbg reassuring. mild CO2 retention Sleep Apnea - has not tolerated cpap or qhs O2 in years. O2 sat goal 90. Chronic MSK Pain - home meds list w/ prn oxycodone 5mg QID prn and hydrocodone-acetaminophen 10mg q6h prn Left Leg Swelling - bilat lower extrem venous duplex US negative Urinary Retention - Presented with some urinary retention, which has since resolved - Has been voiding normally Constipation - CT w/ possible stercoral colitis. Low suspicion given her clinic picture - scheduled BID miralax - Has been having consistent bowel movements. Recommend continuing Miralax at home as needed Tachycardia - reportedly chronic, for which she takes metoprolol. Continue home metoprolol dosing. Anxiety -continue home amitriptyline, buspirone, sertraline - Will resume home dose of Xanax Restless leg syndrome - continue home pramipexole (2) Multifocal pneumonia: (3) Fall: (4) Elevated troponin: (5) Chronic obstructive pulmonary disease: (6) Sleep apnea: (7) Chronic musculoskeletal pain: (8) Left leg swelling: (9) Urinary retention: (10) Constipation: (11) Tachycardia: (12) Anxiety: (13) Restless leg syndrome: Total Time Total Time Spent Total Time Spent (In Minutes): 30 minutes in seeing the patient, reviewing lab work, and documentation Discharge Plan Discharge Items Patient Disposition: Home - Self-Care Reason For Visit: AMS, FALL Discharge Diagnosis: Pneumonia Activity: Per Instructions section Non-emergency contact: Primary Care Provider Call non-emergency contact if: you have any medication questions, your symptoms worsen and you have a fever Follow-up/Referrals: Chloe Díaz PA-C [Primary Care Provider] - (PLEASE CALL YOUR PRIMARY CARE PROVIDER TO SCHEDULE A DISCHARGE FOLLOW-UP APPOINTMENT WITHIN 7-10 DAYS. ) Diet: Regular Addtl Attending Provider Instructions: You were admitted to the hospital for altered mental status likely caused by aspiration pneumonia. You were treated with antibiotics. We will send you with a prescription for antibiotics. We are going to send Augmentin. You should take in twice a day for the next 5 days. Your last dose will be in the morning on 01/30. We did not change any of your other medications. You could consider talking to your primary care doctor about consolidating some of your medications for anxiety. If you develop worsening shortness of breath, fever/chills, chest pain you should call you primary care doctor or go back to the ED. A discharge summary will be sent to your primary care physician to ensure continuity of care. Please bring this discharge summary with you to your next office appointment so that your provider can review it at that time. Follow-up appointments: Make a follow-up appointment with your PCP within the next week. It is very important that you follow up with them shortly after discharge from the hospital. Pending Studies at Discharge: No Stand-Alone Forms: My [facility], Smoking Cessation Medications and DC Order Prescriptions: New amoxicillin-pot clavulanate 875-125 mg Tablet 1 tab PO BIDM 5 Days Qty: 12 0RF Continued alprazolam 1 mg Tablet 1 mg PO TID hydrocodone-acetaminophen 5-325 mg Tablet 1 tab PO Q6H PRN (Reason: Pain) pramipexole 0.125 mg Tablet 0.125 mg PO HS oxycodone 5 mg Tablet 5 mg PO QID PRN (Reason: Pain) ezetimibe 10 mg Tablet 10 mg PO HS budesonide-formoterol [Symbicort] 80-4.5 mcg/actuation Hfa Aerosol Inhaler 2 puff INHALATION BID metoprolol succinate 50 mg Tablet Extended Release 24 Hr 50 mg PO DAILY albuterol sulfate 2.5 mg /3 mL (0.083 %) solution for nebulization 2.5 mg continuous nebulization UD buspirone 7.5 mg tablet 7.5 mg PO UD omeprazole 20 mg capsule,delayed release(DR/EC) 20 mg PO DAILY cholecalciferol (vitamin D3) [Vitamin D3] 50 mcg (2,000 unit) capsule 50 mcg PO DAILY amitriptyline 75 mg tablet 75 mg PO HS sertraline 50 mg tablet 50 mg PO UD Discharge Orders: Discharge Order (Routine); Ordered 01/25/23 Ordered By: Yen Desir Admission Data Admit Date/Time: 01/22/23 19:32 Attending Provider: Marco Bautista Admit Provider: Neri Holden Primary Care Provider: Chloe Díaz Other Providers: Keyur Harrell Other Interventions: Discharge Summary Assessment (RN) Last Done: 01/25/23 13:01 Supervising Physician Co-Signing Physician Notes I also saw the patient confirmed logan portions of the history and physical examination. I agree with the impression and plan as noted in the resident documentation. Patient is seen midmorning. She has no complaints. She is feeling at her baseline. She denies any shortness of breath, chest pain. Exam Vital signs reviewed She is pleasant. Alert. Respirations are nonlabored. Decreased breath sounds, right base. Heart is mildly tachycardic Data CBC is within normal limits. Impression and Plan Metabolic encephalopathy Aspiration pneumonia Marked improvement; tolerating oral, maintaining oxygen saturations without supplemental oxygen, remains afebrile Safe for discharge today on oral antibiotics Follow-up with PCP to review medications Tachycardia/hypertension Metoprolol had been held initially in her hospitalization Restarted the day before discharge; will follow-up with PCP for reevaluation, suspect will also return to baseline as she continues to convalesce. Additional per resident documentation Resident Activity Tracking Resident Involvement: Resident Care Provided Care Provided: Adult Hospital Medicine
--- NOTE | 2023-01-25 09:38 | Electrocardiogram Report ---
Test Reason : Blood Pressure : / mmHG Vent. Rate : 096 BPM Atrial Rate : 098 BPM P-R Int : 000 ms QRS Dur : 088 ms QT Int : 346 ms P-R-T Axes : 000 069 017 degrees QTc Int : 437 ms Poor data quality, interpretation may be adversely affected Sinus rhythm Low voltage QRS Cannot rule out Anterior infarct , age undetermined Abnormal ECG When compared with ECG of 13-SEP-2015 12:21, Poor R progression and low voltage are now present Confirmed by Dago Jerry ([id number]) on 01/25/2023 9:38:29 AM Referred By: REFERRED SELF Confirmed By:Dago Jerry
--- NOTE | 2023-01-25 09:42 | XRay Report ---
XR chest 2V PA/lateral CLINICAL HISTORY: Pneumonia. COMPARISON STUDY: Chest radiograph and chest CT January 22, 2023. FINDINGS: Old right clavicular fracture is incidentally noted. There are surgical anchors within the right humeral head. There is no pneumothorax or pleural effusion. There is no evidence for pulmonary edema. Cardiomediastinal silhouette is stable. Right lower lung airspace opacities have improved. No new sites of consolidation are present. IMPRESSION: Interval improvement in right lower lung pneumonia. ACT 112: Negative or not required by law. Electronically signed by: Cleve Cook M.D. 01/25/2023 9:40 AM
[2023-01-26 13:22] LABS: 7-Aminoclonaz, Confirm NEGATIVE ng/mL (<25); Codeine Urine NEGATIVE ng/mL (<50); Hydro-Alp Ur, GC/MS 741 ng/mL (<25); Hydrocodone Urine 1460 ng/mL (<50); Hydromor Urine 329 ng/mL (<50); Hydroxyethylflurazepam, Conf NEGATIVE ng/mL (<50); Hydroxymidazolam Ur, GC/MS NEGATIVE ng/mL (<50); Hydroxytriazolam NEGATIVE ng/mL (<50); Lorazepam, Ur GC/MS NEGATIVE ng/mL (<50); Morphine Urine NEGATIVE ng/mL (<50); Nordiazepam, Confirm NEGATIVE ng/mL (<50); Norhydrocodone Conf Ur 1920 ng/mL (<50); Noroxycodone Urine 2010 ng/mL (<50); Oxazepam Ur, GC/MS NEGATIVE ng/mL (<50); Oxycodone Urine 1200 ng/mL (<50); Oxymorph Urine 910 ng/mL (<50); Temazepam, Confirm NEGATIVE ng/mL (<50)
== END 2023-01-25 13:21 | disposition home or self-care (01) | DRG 177 ==
LOC: ED 14:34 → SUATTDRO 19:32 → 2N 19:32

== ENCOUNTER 2024-04-30 10:16 | Observation (INO) ==
--- NOTE | 2024-03-24 11:00 | PAT Medication Instructions ---
Medication Instructions Date of Service March 24, 2024 Home Medications budesonide-formoterol HFA 80 mcg-4.5 mcg/actuation aerosol inhaler (Symbicort) 2 puff inhalation BID ezetimibe 10 mg tablet 10 mg PO HS pramipexole 0.125 mg tablet 0.125 mg PO HS metoprolol succinate 50 mg tablet,extended release 24 hr 50 mg PO QAM albuterol sulfate 2.5 mg/3 mL (0.083 %) solution for nebulization 2.5 mg continuous nebulization UD PRN Shortness Of Breath amitriptyline 75 mg tablet 75 mg PO HS buspirone 7.5 mg tablet 7.5 mg PO TID cholecalciferol (vitamin D3) 50 mcg (2,000 unit) capsule (Vitamin D3) 50 mcg PO QAM omeprazole 20 mg capsule,delayed release 20 mg PO QAM sertraline 100 mg tablet 100 mg PO QAM MEDICATION INSTRUCTIONS: Continue as directed albuterol sulfate 2.5 mg/3 mL (0.083 %) solution for nebulization 2.5 mg continuous nebulization UD PRN Shortness Of Breath budesonide-formoterol HFA 80 mcg-4.5 mcg/actuation aerosol inhaler (Symbicort) 2 puff inhalation BID DO NOT take the morning of surgery cholecalciferol (vitamin D3) 50 mcg (2,000 unit) capsule (Vitamin D3) 50 mcg PO QAM Take morning of surgery With a small sip of water, OTHERWISE NOTHING TO EAT OR DRINK AFTER MIDNIGHT: omeprazole 20 mg capsule,delayed release 20 mg PO QAM metoprolol succinate 50 mg tablet,extended release 24 hr 50 mg PO QAM sertraline 100 mg tablet 100 mg PO QAM buspirone 7.5 mg tablet 7.5 mg PO TID Take evening before surgery ezetimibe 10 mg tablet 10 mg PO HS pramipexole 0.125 mg tablet 0.125 mg PO HS amitriptyline 75 mg tablet 75 mg PO HS buspirone 7.5 mg tablet 7.5 mg PO TID Other Notes If you have any questions please call us at [phone] or [phone] or [phone] or [phone]
--- NOTE | 2024-03-31 12:50 | Anesthesiology Consultation ---
Date of Service March 31, 2024 Assessment & Plan (1) Encounter for pre-operative examination: - right arm restriction. - patient does not want any opioid medications as states in past they were not beneficial for her, patient and family accompanying her at PAT visit today state that surgeon is aware. - abnormal pre-op EKG with new inferior lead changes: case discussed in detail with Dr. Cardona who advised patient is acceptable to proceed without further eval uation or testing from his standpoint. - Outpatient joint assessment: Patient is currently scheduled for inpatient pathway. If re-evaluated and patient/surgeon requests outpatient pathway, patient is not recommended candidate for outpatient joint program from anesthesia standpoint. Chart Review Chart Review: Acceptable Risk for Surgery and Patient seen in Pre Admission Testing Teaching & Discussion Pre-Anesthesia Teaching/Discussion Notes: Instructed NPO after midnight before surgery, except medications with 15 cc of water. Medication instructions provided according to the [facility] guidelines. History Surgery Operation Date: 04/30/24 07:00 Proposed Procedures p Right Reverse Total Shoulder Arthroplasty - Anuel Ayala DO Patient is accompanied today by daughter and granddaughter. Height/Weight Height: 5 ft 1 in Weight: 88.2 kg Allergies Allergy/AdvReac Type Severity Reaction Status Date / Time No Known Allergies Allergy Verified 03/24/24 09:03 Medications Home Medications Medication Instructions Recorded Confirmed Last Taken budesonide-formoterol HFA 80 2 puff inhalation BID 12/21/19 03/24/24 05/10/20 04:45 mcg-4.5 mcg/actuation aerosol inhaler (Symbicort) ezetimibe 10 mg tablet 10 mg PO 12/21/19 03/24/24 05/09/20 21:30 pramipexole 0.125 mg tablet 0.125 mg PO 12/21/19 03/24/24 05/09/20 21:30 metoprolol succinate 50 mg 50 mg PO QAM 05/10/20 03/24/24 05/09/20 08:00 tablet,extended release 24 hr albuterol sulfate 2.5 mg/3 mL 2.5 mg continuous nebulization UD 01/22/23 03/24/24 Unknown (0.083 %) solution for nebulization PRN Shortness Of Breath amitriptyline 75 mg tablet 75 mg PO HS 01/22/23 03/24/24 Unknown buspirone 7.5 mg tablet 7.5 mg PO TID 01/22/23 03/24/24 Unknown cholecalciferol (vitamin D3) 50 50 mcg PO QAM 01/22/23 03/24/24 Unknown mcg (2,000 unit) capsule (Vitamin D3) omeprazole 20 mg capsule,delayed 20 mg PO QAM 01/22/23 03/24/24 Unknown release sertraline 100 mg tablet 100 mg PO QAM 03/24/24 03/24/24 Unknown ibuprofen 600 mg tablet 600 mg PO Q8H PRN pain #60 tabs 03/31/24 03/31/24 Unknown Past Medical History Medical History Anxiety Bilateral leg edema knees, chronic since TKAs, denies change or worsening Chronic obstructive pulmonary disease stable per pt; last rescue inhaler use several months ago Depression History of colon cancer per pt Pseudoangiomatous stromal hyperplasia of breast Restless leg syndrome Sleep apnea pt states she was unable to tolerate cpap--does not use Spinal stenosis Tachycardia Chronic. Managed with Metoprolol. Was 106bpm at PCP clearance visit. Urinary retention history Patient denies h/o stroke, seizures, heart attack, heart failure, DM, HTN, blood clots/DVTs or blood transfusions. Exercise / Class Metabolic Activity III < 4 Walking/Shop/Light housework (denies chest discomfort or shortness of breath with usual activities) Past Family History Family History Other No family history of adverse response to anesthesia Past Surgical History Surgical History History of bowel resection benign tumor History of colonoscopy History of esophagogastroduodenoscopy (EGD) History of left breast biopsy 05/2020 History of left knee replacement History of right knee joint replacement History of rotator cuff surgery Rt History of surgery on upper extremity RUE; hardware present History of tonsillectomy History of total abdominal hysterectomy and bilateral salpingo-oophorectomy Nausea and vomiting after administration of anesthetic agent Past Anesthesia History No Family Hx of Anesthesia Complications and Other (hypoxia post-op) History of PONV No Hx of Motion Sickness and History of PONV (denies needing scop patch) Social History Smoking Status: Current every day smoker tobacco type: cigarettes Smoking cigarettes per day: 20-30 (advised on policy) Do You Dip or Chew Tobacco: No Hx Alcohol Use: No Hx Substance Use: No substance use type: does not use Review of Systems Patient denies chest pain, shortness of breath, dyspnea on exertion, fever, chills, or palpitations. Physical Exam Vital Signs Vitals BP 124/77 P 87 TEMP 98.3 SP02 94% on RA RESP 18 Physical Patient resting comfortably in chair in no acute distress, alert and oriented, responding appropriately throughout visit Full cervical extension range of motion without pain TMD 3.5 finger breadths Mallampati Score 3 Dentition: edentulous, full upper and lower dentures Lungs: normal respiratory effort. Good air movement, clear throughout to auscultation, no adventitious breath sounds Cardiac: regular rate and rhythm, no murmurs noted Carotid arteries: negative bruit bilat Lab Results Anesthesia Preop Results Results Anesthesia Widget: WBC 10.46 K/ul (4.8-10.8) 03/31/24 Hgb 14.4 g/dl (12.0-16.0) 03/31/24 Hct 43.4 % (37.0-47.0) 03/31/24 Plt 302 K/uL (130-400) 03/31/24 Na 135 mmol/L (136-145) L 03/31/24 K 4.4 mmol/L (3.5-5.1) 03/31/24 Cl 101 mmol/L (98-107) 03/31/24 CO2 27 mmol/L (21-32) 03/31/24 BUN 11 mg/dl (6-23) 03/31/24 Creat 0.71 mg/dl (0.6-1.2) 03/31/24 Glucose Level 93 mg/dl (70-99(Fasting)) 03/31/24 PT 10.2 Seconds (9.0-12.0) 03/31/24 PTT 25 Seconds (21-31) 03/31/24 INR 0.9 (0.9-1.1) 03/31/24 Blood Type O Positive 03/31/24 Antibody Screen NEGATIVE 03/31/24 Testing Electrocardiogram Date: 03/31/24 NSR, rate 86 bpm Possible inferior infarct, age undetermined Chest X-Ray Date: 03/31/24 No active disease in the chest.
[~2024-04-30 10:16] MED LIST changes: -ADVIN25050 INH; -ALPR1TAB3 PO; -AMIT50TA3 PO; +BUPIVACAINE 0.5 % 5 MG/1 ML PF 10ML VIAL ONE; -FLUO20CA35 PO; -HYDR-4079 PO; -MELO15TA10 PO; -METO5TAB2 PO; -OXGN; -PRLSR20 PO
[2024-04-30] MEDS ORDERED: PROPOFOL IV EMULSION 10 MG/ML 20 ML VIAL IV ONE (10:29)
[2024-04-30] MEDS ORDERED: ROCURONIUM BROMIDE 10 MG/ML 5 ML VIAL IV ONE (10:29)
[2024-04-30] MEDS ORDERED: LIDOCAINE 2% 2 ML VIAL/AMP(20MG/ML) INFIL ONE (10:29)
[2024-04-30] MEDS ORDERED: DEXAMETHASONE SOD INJ 4 MG/ML VIAL ONE (10:29)
[2024-04-30] MEDS ORDERED: fentaNYL citrate PF 100 MCG/2 ML VIAL ONE ×3 (10:29→12:55)
[2024-04-30] MEDS ORDERED: ONDANSETRON INJ 2 MG/ML 2 ML VIAL ONE (10:29)
[2024-04-30] MEDS ORDERED: MIDAZOLAM HCL 1 MG/ML 2ML VIAL ONE (10:29)
[2024-04-30] MEDS: FAMOTIDINE 20 MG TAB PO SCH (11:05)
[2024-04-30] MEDS: LR 60ML/HR IV SCH (11:05)
[2024-04-30] MEDS: LR 15ML/HR IV SCH (11:05)
[2024-04-30] MEDS: GABAPENTIN 300 MG CAP PO SCH (11:06)
[2024-04-30] MEDS: ACETAMINOPHEN 500 MG TAB PO SCH ×2 (11:06→21:40)
[2024-04-30] MEDS: dexAMETHasone**PF** 10 MG/ML VIAL IV SCH (11:06)
--- NOTE | 2024-04-30 11:09 | History & Physical Bridge Note ---
Date of Service April 30, 2024 History & Physical Bridge Note I have examined the patient, reviewed the History & Physical and in the interval since the performance of the History & Physical I have noted the following changes of clinical significance: no changes noted
[2024-04-30] MEDS ORDERED: ONDANSETRON INJ 2 MG/ML 2 ML VIAL IV PRN ×2 (11:38→15:08)
[2024-04-30] MEDS ORDERED: fentaNYL citrate PF 100 MCG/2 ML VIAL IV PRN (11:38)
[2024-04-30] MEDS ORDERED: ePHEDrine sulfate 50 MG/ML AMP IV PRN (11:38)
[2024-04-30] MEDS ORDERED: ATROPINE SULFATE 0.1 MG/ML 10ML SYR IV PRN (11:38)
[2024-04-30] MEDS: TRANEXAMIC ACID 1,000 MG **IV Pre-op IV SCH (11:47)
[2024-04-30] MEDS: ceFAZolin 2000MG 2,000 MG/15 ML SYR IV SCH ×2 (11:59→20:07)
[2024-04-30] MEDS: ORTHO JOINT ANESTHETIC ONE (12:33)
[2024-04-30] MEDS: ROPIV 0.5% 246mg, Ketorolac 30mg, EPINEPHrine 0.5mg in NSS INFIL SCH (12:50)
[2024-04-30] MEDS: TRANEXAMIC ACID 1,000 MG **IV Intra-op IV SCH (12:52)
--- NOTE | 2024-04-30 13:01 | Operative Report ---
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 long head of biceps tendon I identified the patient and participated in the time-out.: Yes Procedure Operation Date: 04/30/24 12:00 Actual Procedures p Right Reverse Total Shoulder Arthroplasty(Right) with open biceps tenodesis as a distinct and separate procedure (modifier 59)- Anuel Ayala DO Surgeon Anuel Ayala DO Manager Of [facility] Services Anuel Cottrell PA-C Estimated Blood Loss 30 Findings Consistent with Post-Op Diagnosis Specimens Right humeral head Description of Procedure A CPT code modifier 59: The long head of the biceps tendon was enlarged and inflamed consistent with tendinopathy. A tenodesis was opted. This was a separate and distinct portion of the procedure. For these reasons, a CPT code modifier 59 will be added to this case. Implants used: I used a [employer] Comprehensive reverse total shoulder arthroplasty system with a size 11 press fit micro humeral stem, a +6 offset humeral tray and a standard humeral bearing, a 25 mm medium augment baseplate with a 6.5 mm central screw and superior and inferior locking screws, and a size 40 mm eccentric glenosphere. Codi arrived at [facility] for the above procedure. She was seen in the preoperative holding area and the operative extremity was identified and signed. She was given a preoperative antibiotic, TXA, and an interscalene nerve block. She was taken back to the operating room, laid on table in supine position, and put under general anesthesia. She was then put into the beachchair position. The shoulder was then prepped and draped in sterile fashion. A timeout was done and the patient and the operative extremity was properly identified. A deltopectoral approach was used. Dissection was taken down through the fascia and the deltoid was retracted laterally and the conjoined tendon was retracted medially. The anterior shoulder was exposed. The biceps groove was opened up and the biceps tendon was examined extensively. The biceps tendon demonstrated enlargement and inflammatory changes consistent with longstanding inflammation in the context of osteoarthritis and cuff arthropathy. The long head of the biceps tendon was then tenodesed to the upper border of the pectoralis major. This was a separate and distinct portion of the procedure. The subscapularis was then directly released off the lesser tuberosity with a peel technique. The inferior capsule was released and the humeral head was dislocated. A canal finding reamer was sent down the center of the humeral canal. Sequential reaming up to a size 11 reamer was done. Off that reamer, a proximal humeral resection guide was placed. The proximal humerus was resected at 135 of inclination and 25 of retroversion. Osteophytes were then removed and the glenoid was exposed. Time was spent doing a complete capsular and labral release. The glenoid guide was then placed in the inferior aspect of the glenoid. A 3.2 mm Steinmann pin was then placed into the glenoid vault at 10 of inclination. The glenoid baseplate was then reamed. The final size 25 mm medium augment baseplate was then impacted in the place. A 6.5 mm central screw was then placed followed by superior and inferior locking screws. A 40 mm eccentric glenosphere was then impacted into place. Surrounding soft tissues were then injected with 100 cc an orthopedic pain control cocktail. The proximal humerus was then exposed. Sequential broaching of the humerus up to a size 11 broach was done. Off that broach a +6 offset humeral tray was trialed. The shoulder was then reduced, brought through a full range of motion, and felt to be stable. The shoulder was then dislocated and the broach was removed. The final size 11 micro press-fit humeral stem was then impacted into place. A standard humeral bearing was then snapped onto a +6 offset humeral tray. The humeral tray was then impacted onto the humeral stem. The shoulder was once again reduced, brought through a full range of motion, and felt to be stable. The subscapularis was torn and retracted. The subscapularis was unable to be repaired. A dilute betadyne lavage was then done for 3 minutes. The joint was then irrigated with normal saline solution. Hemostasis was obtained. The interval was closed with 2-0 Vicryl suture. The skin was then closed with 2-0 Vicryl and shaye. A Silverlon dressing was placed and the arm was rested in a regular arm sling. She was then extubated and transferred to a hospital bed. She taken to the postanesthesia care unit in stable condition. She tolerated the procedure well. Anuel Cottrell PA-C, was present for the entire procedure. He was critical for patient positioning, prepping, draping, retraction exposure, wound closure and application of sterile dressing. I attest to the content of the Intraoperative Record and any orders documented therein. Any exceptions are noted below.
--- NOTE | 2024-04-30 14:25 | Anesthesiology Progress Note ---
Date of Service April 30, 2024 Anesthesia Post Procedure Vital Signs Vital Signs: Temp Pulse Resp BP Pulse Ox O2 Del Method O2 Flow Rate 04/30/24 14:20 87 16 110/56 L 93 Oxymask 2 04/30/24 14:10 37.1 C 86 16 118/67 93 Oxymask 2 04/30/24 14:00 90 15 121/63 93 Oxymask 2 04/30/24 13:50 93 H 16 109/73 95 Oxymask 2 04/30/24 13:40 89 16 120/65 95 Oxymask 4 04/30/24 13:30 95 H 12 114/72 94 Oxymask 4 04/30/24 13:20 91 H 16 119/91 93 Oxymask 6 04/30/24 13:19 36.0 C L 103 H 12 131/95 94 Oxymask 6 04/30/24 10:54 36.1 C L 100 H 18 159/96 H 95 Room Air Pain Intensity Right Arm: Pain Intensity: 10 Transfer of Care Handoff Completed per policy Notes Mental Status: alert / awake / arousable and participated in evaluation Patient Amnestic to Procedure: Yes Nausea / Vomiting: improving with treatment Pain: adequately controlled and improving with treatment Airway Patency, RR, SpO2: stable & adequate BP & HR: stable & adequate Hydration State: stable & adequate Anesthetic Complications: no major complications apparent and Pt Satisfied with anesthetic care Notes: Pt interscalene block is functioning well. Arm in sling
--- NOTE | 2024-04-30 15:07 | XRay Report ---
XR shoulder RT min 2V routine CLINICAL HISTORY: Post shoulder surgery TECHNIQUE: 3 views of the right shoulder were obtained. Comparison: Comparison is made to shoulder radiographs 06/07/2019 FINDINGS: Patient is status post shoulder arthroplasty with expected postsurgical changes including soft tissue swelling and subcutaneous emphysema. No periarticular lucency or hardware fracture is seen. IMPRESSION: Expected postoperative appearance status post placement of shoulder arthroplasty. ACT 112: Negative or not required by law. Electronically signed by: Stepan Brandt M.D. 04/30/2024 3:05 PM
[2024-04-30] MEDS ORDERED: bisacodyL 10 MG SUPP PR PRN (15:08)
[2024-04-30] MEDS ORDERED: NALOXONE HCL 0.4 MG/1 ML VIAL/CARP IV PRN (15:08)
[2024-04-30] MEDS ORDERED: ALBUTEROL 0.083% NEBU SOLN 3 ML VIAL NEB PRN (15:08)
[2024-04-30] MEDS ORDERED: HYDROmorphone INJ 0.5 MG/0.5 ML SYR IV PRN (15:08)
[2024-04-30] MEDS ORDERED: METOCLOPRAMIDE HCL INJ 5 MG/ML 2 ML VIAL IV PRN (15:08)
[2024-04-30] MEDS ORDERED: MAGNESIUM HYDROXIDE SUSP 30 ML UDC PO PRN (15:08)
[2024-04-30] MEDS ORDERED: oxyCODONE HCL IR 5 MG TAB (IMMEDIATE RELEASE) PO PRN (15:08)
[2024-04-30] MEDS: NICOTINE 21 MG/24 HR TDSY TD SCH (16:19)
[2024-04-30] MEDS: KETOROLAC TROMETHAMINE 15 MG/ML VIAL IV SCH (16:19)
[2024-04-30] MEDS: busPIRone 7.5 MG TAB PO SCH (16:19)
[2024-04-30] MEDS: SODIUM CHLORIDE 0.9% 1,000 ML IV SCH (18:54)
[2024-04-30] MEDS: AMITRIPTYLINE HCL 25 MG TAB PO SCH (20:06)
[2024-04-30] MEDS: EZETIMIBE 10 MG TAB PO SCH (20:06)
[2024-04-30] MEDS: DOCUSATE SODIUM 100 MG CAP PO SCH (20:07)
[2024-04-30] MEDS: SENNA 8.6 MG TAB PO SCH (20:08)
[2024-04-30] MEDS: FLUTICASONE/VILANTEROL 100/25MCG 14 PUFFS/INHALER INH SCH (20:08)
--- NOTE | 2024-05-01 07:38 | Orthopedic Progress Note ---
Date of Service May 01, 2024 Assessment & Plan (1) Status post reverse total replacement of right shoulder: Overall she is doing well. She is not having much pain in the right shoulder. She will be seen by physical therapy today for ambulation and range of motion exercises. She can be discharged home later today. She will follow-up with orthopedics in 2 weeks. Matthew Kincaid was seen and examined at bedside this morning. Overall she is doing very well. She is not having much pain in the right shoulder. She was able to get some sleep last night. She had no complaints.. Review of Systems All systems reviewed & are unremarkable except as noted in HPI & below. Physical Exam Physical examination of the right shoulder, the dressing is clean and dry. She is wearing her sling as instructed. She has active motion of her hand and wrist.. Results & Data Results & Data Laboratory Results . Diagnostic Findings Postoperative x-rays of the right shoulder show the prosthesis to be in anatomic alignment without any evidence of fracture complication, or loosening.. PG Care Time/CCT Total # of Minutes Spent Total Time Spent with Patient: Total time spent is greater than 50% in coordination of care (as documented) at patient's floor/unit and/or counseling patient: Coding Level of Care Code 33821 Post Operative Follow-Up Diagnoses Status post reverse total replacement of right shoulder Z96.611
--- NOTE | 2024-05-01 07:39 | Discharge Summary ---
Date of Service May 01, 2024 Principal Diagnosis Same as "Discharge Diagnosis" noted below under Discharge Instructions. Discharge Exam Physical examination of the right shoulder, the dressing is clean and dry. She is wearing her sling as instructed. She has active motion of her hand and wrist.. Discharge Data Procedures Performed Operation Date: 04/30/24 12:00 Actual Procedures p Right Reverse Total Shoulder Arthroplasty(Right) - Anuel Ayala DO Ordered Studies 04/30/24 05:00 US - OR guided needle placemen Routine Hospital Course (1) Status post reverse total replacement of right shoulder: On April 30, 2024 Codi arrived at [facility] and underwent a right reverse shoulder replacement without complication. She had a general anesthetic and a right interscalene nerve block. Postoperatively she was placed in a sling and transferred to the general orthopedic floors. Her hospital course was uneventful. On postop day #1, her vital signs showed she was slightly hypertensive. Her pain was well-controlled. She was able to participate well with physical therapy doing ambulation and range of motion exercises. She was then discharged home. She will follow-up with orthopedics in 2 weeks. PG Care Time/CCT Total # of Minutes Spent Total Time Spent with Patient: Total time spent is greater than 50% in coordination of care (as documented) at patient's floor/unit and/or counseling patient: Discharge Plan Discharge Items Patient Disposition: Home - Self-Care Reason For Visit: Degenerative Joint Disease Right Shoulder Discharge Diagnosis: Right reverse shoulder replacement Activity: Per Instructions section Non-emergency contact: Surgeon Call non-emergency contact if: your wound has increased redness and your wound has increased drainage Follow-up/Referrals: Chloe Díaz PA-C [Primary Care Provider] - Diet: Regular Addtl Attending Provider Instructions: Activity and Therapy Recommendations: * If you are using [facility] then therapy will be provided at your home until they feel you have accomplished all of your goals. * If you are using [facility] then Physical Therapy will be provided until they feel you are ready to start Outpatient Physical Therapy. * If you are not using home therapy then Outpatient Physical Therapy should start about 3-5 days from your day of surgery. Therapy will last about 8-12 weeks * Wear your sling for 3 weeks, unless otherwise instructed. You may remove your sling to shower and to dress, but otherwise, you should be in your sling at all times, including while sleeping * The shoulder replacement is very stable and you can use your hand while in the sling * You were shown a series of exercises in the hospital. Do these exercises daily including the exercises you were shown in physical therapy. Medications: * Narcotic You will likely be sent home from the hospital with a prescription for the narcotic pain medication that worked best throughout your stay. * Cefadroxil-take the antibiotic twice a day for 10 days to help prevent infection. * Other medications may be prescribed for specific circumstances. If you have any questions, please call the office at . * Resume previous home medications unless otherwise instructed Dressing Care: Leave the Silverlon dressing in place for 7 days. After 7 days you may remove the dressing. If the incision is not draining then you may leave the shaye open to air. If there is a little bit of drainage or if the shaye are getting stuck on your clothing then cover the incision with a dry dressing. The shaye will be removed at your 2 week follow-up appointment. Showering: You may shower with the Silverlon dressing in place. Do not let the shower spray hit the dressing directly. Pat the Silverlon dressing dry. If the dressing becomes wet underneath, then simply remove the dressing. Keep the incision dry until you are 7 days out from the day of surgery. After 7 days you may remove the Silverlon dressing and shower with the shaye exposed. Let soapy water run over the shaye and pat them dry. Do not scrub or soak the incision. Things To Watch For: * Drainage from the incision site that occurs more than one week after your surgery. * Increased redness at the incision site. * Fever above 102 degrees Fahrenheit. * Unusual chest pain or shortness of breath. * Call [facility] at with any of the above problems Follow-Up Visit: Follow-up with Dr. Ayala's PA (Anuel Cottrell) 2-3 weeks after your day of surgery. He will remove your shaye and answer any questions. If you have any additional questions or concerns, Dr Ayala is usually in the office at the same time and will be available An appointment was probably scheduled when you signed-up for surgery in the office. If you have any questions call More detailed instructions as well as Frequently Asked Questions were provided in a folder by our office when you signed-up for surgery. Please review these instructions when you get home. If you have any further questions or concerns, please feel free to call the office at [phone] Pending Studies at Discharge: No Stand-Alone Forms: My [facility] Medications and DC Order Prescriptions: New oxycodone 5 mg Tablet 5 mg PO Q4H PRN (Reason: pain) Qty: 30 0RF cefadroxil 500 mg capsule 500 mg PO BID 10 Days Qty: 20 0RF Continued ibuprofen 600 mg tablet 600 mg PO Q8H PRN (Reason: pain) Qty: 60 0RF ezetimibe 10 mg Tablet 10 mg PO HS budesonide-formoterol [Symbicort] 80-4.5 mcg/actuation Hfa Aerosol Inhaler 2 puff INHALATION BID metoprolol succinate 50 mg Tablet Extended Release 24 Hr 50 mg PO QAM albuterol sulfate 2.5 mg /3 mL (0.083 %) solution for nebulization 2.5 mg continuous nebulization UD PRN (Reason: Shortness Of Breath) buspirone 7.5 mg tablet 7.5 mg PO TID omeprazole 20 mg capsule,delayed release(DR/EC) 20 mg PO QAM cholecalciferol (vitamin D3) [Vitamin D3] 50 mcg (2,000 unit) capsule 50 mcg PO QAM amitriptyline 75 mg tablet 75 mg PO HS sertraline 100 mg Tablet 100 mg PO QAM Discharge Orders: Discharge Order (Routine); Ordered 05/01/24 Ordered By: Anuel Ayala Admission Data Admit Date/Time: 04/30/24 13:21 Attending Provider: Anuel Ayala Admit Provider: Anuel Ayala Primary Care Provider: Chloe Díaz
[2024-05-01] MEDS: METOPROLOL SUCC 50MG EXT REL TAB PO SCH (08:12)
[2024-05-01] MEDS: dexAMETHasone 4 MG TAB PO SCH (08:13)
[2024-05-01] MEDS: MULTIVITAMIN TAB PO SCH (08:13)
[2024-05-01] MEDS: SERTRALINE HCL 100 MG TABLET PO SCH (08:14)
== END 2024-05-01 11:20 | disposition home health service (06) ==
LOC: ASU 10:16 → 3E 10:16